=== PATIENT | female | born 1960 | race Hispanic/Latino ===

== ENCOUNTER 2025-06-25 11:21 | Inpatient (IN) | payer OTHER ==
[~2025-06-25] VITALS: Ht 167.6 cm; Wt 108.9 kg
[2025-06-25] MEDS ORDERED: SODIUM CHLORIDE 0.9% 1,000 ML IV ONE (11:45)
[2025-06-25 12:09] LABS: BASOPHILS 0.4 % (0.1-1.2); EOSINOPHILS 0.8 % (0.7-5.8); LYMPHOCYTES 12.4 % (19.3-51.7); MCH 28.5 PG (25.6-32.2); MCHC 32.6 g/dL (32.2-35.5); MCV 87.7 fL (79.4-94.8); MONOCYTES 12.1 % (4.7-12.5); NEUTROPHILS 74.1 % (34.0-71.1); RBC 3.89 M/uL (3.93-5.22)
[2025-06-25 12:25] LABS: ALT (SGPT) 19.0 U/L (14-59); AST (SGOT) 25.0 U/L (15-37); GLOMERULAR FILTRATION RATE,EST 100.0 mL/min (>60); PROTEIN, TOTAL 7.0 g/dL (6.4-8.2); UREA NITROGEN 6.0 mg/dL (7-18)
[2025-06-25] MEDS ORDERED: KETOROLAC TROMETHAMINE 30 MG/ML VIAL IV ONE (13:15)
[2025-06-25 14:15] LABS: BLOOD/HGB, URINE NEGATIVE (Negative); KETONE, URINE NEGATIVE (Negative); LEUK ESTERASE, URINE NEGATIVE (negative); NITRITE, URINE NEGATIVE (negative)
[2025-06-25] MEDS ORDERED: BUPROPION XL150 MG PO (14:29)
[2025-06-25] MEDS ORDERED: ROSUVASTATIN CA20 MG PO (14:29)
[2025-06-25] MEDS ORDERED: PEG3350510 GM PO (14:31)
[2025-06-25] MEDS ORDERED: VITAMIN D21250 MCG PO (14:31)
[2025-06-25] MEDS ORDERED: NACL IV PRN ×2 (15:45)
[2025-06-25] MEDS ORDERED: NALOXONE HCL 0.4 MG SYR IV PRN ×2 (15:45)
[2025-06-25] MEDS ORDERED: MORPHINE SULFATE IV PRN ×2 (15:45)
[2025-06-25] MEDS ORDERED: PCA SYRING IV PRN ×2 (15:45)
[2025-06-25] MEDS ORDERED: PROCHLORPERAZINE EDISYLATE 10 MG/2 ML VIAL IV PRN ×2 (15:45)
[2025-06-25] MEDS ORDERED: PCA SYRING IV SCH ×2 (15:45)
[2025-06-25] MEDS ORDERED: MORPHINE SULFATE IV SCH ×2 (15:45)
[2025-06-25] MEDS ORDERED: NACL IV SCH ×2 (15:45)
[2025-06-25] MEDS ORDERED: DEXTROSE 5% - LACTATED RINGERS 1,000 ML IV SCH ×2 (15:45)
[2025-06-25] MEDS ORDERED: ZOLPIDEM TARTRA10 MG PO (16:08)
[2025-06-25] MEDS ORDERED: SODIUM CHLORIDE3 ML OPTH (16:09)
[2025-06-25] MEDS ORDERED: OLANZAPINE10 MG PO (16:37)
[2025-06-25] MEDS ORDERED: SEVOFLURANE 250 ML BTL INH ONE (16:57)
[2025-06-25] MEDS ORDERED: fentaNYL citrate 100 MCG/2 ML VIAL ONE (18:12)
[2025-06-25] MEDS ORDERED: SUCCINYLCHOLINE IN 0.9% NACL 200 MG/10 ML SYRINGE ONE (18:33)
[2025-06-25] MEDS ORDERED: ROCURONIUM BROMIDE 50 MG/5 ML SYR ONE ×2 (18:33→19:04)
[2025-06-25] MEDS ORDERED: LIDOCAINE HCL 2% 5 ML SDV ONE (18:33)
[2025-06-25] MEDS ORDERED: KETOROLAC TROMETHAMINE 30 MG/ML VIAL ONE (18:33)
[2025-06-25] MEDS ORDERED: DEXAMETHASONE SOD PHOS 4 MG/ML VIAL ONE (18:33)
[2025-06-25] MEDS ORDERED: SUGAMMADEX SODIUM 200 MG/2 ML ML ONE (18:33)
[2025-06-25] MEDS ORDERED: KETAMINE in NS 50 MG/5 ML SYR ONE (18:42)
[2025-06-25] MEDS ORDERED: SODIUM CHLORIDE 0.9% 40 ML IV ONE (20:24)
[2025-06-25] MEDS ORDERED: Ropivacaine HCl 0.5% 30 ML VIAL ONE (20:24)
[2025-06-25] MEDS ORDERED: FAMOTIDINE 20 MG/ 2 ML VIAL IV SCH ×2 (21:00)
--- NOTE | 2025-06-25 21:30 | NUR ---
PT BROUGHT FROM PACU TO CCU ROOM 127. REPORT RECEIVED FROM RACHEL JONES. PT IS AWAKE AND ALERT, SHE IS ON 6L/O2/MASK, THIS IS TITRATED DOWN TO 2L. PT HAS TANMAY ON RIGHT SIDE DRAINING S/S FLUID, SMALL AMOUNT. HOLGUIN IN PLACE DRAINING URINE WITH TINGES OF RED, MD AT BEDSIDE AND AWARE AND STATES THIS IS TO BE EXPECTED. ABD BINDER IN PLACE, DRESSINGS CDI.
[2025-06-25 21:45] VITALS: BP 121/58
[2025-06-25] MEDS ORDERED: LIDOCAINE 2% VISCOUS 6 ML SYR TOP ONE ×2 (21:45)
[2025-06-25 22:00] VITALS: BP 130/79
--- NOTE | 2025-06-25 22:05 | NUR ---
06/25/25 2205 Yi,Angie Srivastava 2128: PATIENT TO CCU ROOM 127 FOR RECOVERY. ORAL AIRWAY IN PLACE. 2133: ORAL AIRWAY OUT. 2140: O2 DECREASED TO 4 L/MIN VIA MASK. 2141: REPORT GIVEN TO CCU RN.
[2025-06-25 22:06] LABS: BASOPHILS 0.5 % (0.1-1.2); EOSINOPHILS 0.3 % (0.7-5.8); LYMPHOCYTES 8.3 % (19.3-51.7); MCH 28.8 PG (25.6-32.2); MCHC 32.8 g/dL (32.2-35.5); MCV 87.7 fL (79.4-94.8); MONOCYTES 5.7 % (4.7-12.5); NEUTROPHILS 84.9 % (34.0-71.1); RBC 3.82 M/uL (3.93-5.22)
[2025-06-25 22:15] VITALS: BP 130/71
--- NOTE | 2025-06-25 22:15 | NUR ---
FAMILY HAS QUESTIONS REGARDING PLAN FOR PT AND ONE SON IS REQUESTING A SECOND OPINION REGARDING CARE OF PT AND IS WANTING PT TRANSFERRED. DISCUSSED PLAN FOR THE NIGHT TO MONITOR PT DURING IMMEDIATE POST OP TIME AND FAMILY IS OKAY WITH WAITING UNTIL MORNING TO DISCUSS THIS WITH THE DOCTOR.
[2025-06-25 22:30] VITALS: BP 128/74
[2025-06-25 22:45] VITALS: BP 135/74
[2025-06-25 23:00] VITALS: BP 145/71
[2025-06-26] VITALS (23 sets, daily range): BP systolic 90–155; BP diastolic 52–95
--- NOTE | 2025-06-26 00:02 | NUR ---
ASSESSMENT DONE, RN JERROD IS PRESENT TO DISCUSS PLAN OF CARE WITH THE PT AND EXPLAIN CHAINSTITCH PANTS OUTSEAMER AND COLOSTOMY. PT DOES REQUEST WATER BUT IS OKAY WITH WAITING, DOES NOT WANT A MOUTH SWAB AT THIS TIME. CALL LIGHT IN HAND, LIGHTS OUT AND PT IS WANTING TO TRY TO SLEEP.
[2025-06-26 02:46] LABS: BASOPHILS 0.3 % (0.1-1.2); EOSINOPHILS 0 % (0.7-5.8); LYMPHOCYTES 5.3 % (19.3-51.7); MCH 28.6 PG (25.6-32.2); MCHC 32.5 g/dL (32.2-35.5); MCV 88.0 fL (79.4-94.8); MONOCYTES 8.2 % (4.7-12.5); NEUTROPHILS 85.8 % (34.0-71.1); RBC 3.99 M/uL (3.93-5.22)
--- NOTE | 2025-06-26 03:00 | NUR ---
PTS HR HAS TRENDED UP, SHE CONTINUES TO DENY PAIN, URINE OUTPUT HAS BEEN 30ML/HR FOR THE LAST 6 HOURS. HR NOW SITTING AT 140 CONSISTENTLY, SINUS TACHYCARDIA. CALL TO MD TO UPDATE HER, ORDER GIVEN FOR EKG, 500ML LR BOLUS AND TO GIVE PT HER HOME MEDS.
[2025-06-26 03:01] LABS: ALT (SGPT) 103.0 U/L (14-59); AST (SGOT) 184.0 U/L (15-37); GLOMERULAR FILTRATION RATE,EST 102.0 mL/min (>60); PROTEIN, TOTAL 6.5 g/dL (6.4-8.2); UREA NITROGEN 8.0 mg/dL (7-18)
--- NOTE | 2025-06-26 03:43 | NUR ---
RT IN TO DO EKG
[2025-06-26] MEDS ORDERED: LACTATED RINGER'S 1,000 ML IV SCH ×2 (03:45)
--- NOTE | 2025-06-26 04:15 | NUR ---
ASSESSMENT DONE, TANMAY DRAINING SEROSANG FLUID. COLOSTOMY HAS BROWN STOOL COMING FORM STOMA. ABD BINDER IN PLACE, SMALL AMT RED DRAINAGE ON SURGICAL DRESSING. URINE OUTPUT IS LOWER THIS LAST HOUR, WILL CONT TO MONITOR. PT CONTINUES TO DENY PAIN WHEN ASKED.
--- NOTE | 2025-06-26 04:21 | NUR ---
BOLUS HAS COMPLETED, HR STILL 140 SINUS TACHYCARDIA.
[2025-06-26] MEDS ORDERED: OLANZapine 10 MG TAB PO SCH ×2 (04:30)
[2025-06-26] MEDS ORDERED: buPROPion HCL XL 150 MG TAB.XL.24H PO SCH ×2 (04:30)
[2025-06-26] MEDS ORDERED: LORazepam 2 MG/ML VIAL IV PRN ×2 (04:45)
--- NOTE | 2025-06-26 04:45 | NUR ---
MD CALLED BACK TO CHECK ON EKG AND ORDER GIVEN FOR PRN ATIVAN. 2MG IV ATIVAN GIVEN, PT RESPONSE TO ATIVAN WAS TO FALL ASLEEP, DID NOT AROUSE TO LIGHT CARE ACTIVITIES. HR REMAINED 140'S. DURING THIS TIME SHE FELT WARM AND TEMP WAS RECHECKED AND SHE DID HAVE A TEMP.
--- NOTE | 2025-06-26 05:32 | NUR ---
CALL TO MD TO UPDATE ON RECENT FEVER AND DROP IN URINE OUTPUT. ORDER GIVEN TO ADD ABX TO EMAR AND TYLENOL PRN TEMP 101.5F.
[2025-06-26] MEDS ORDERED: ACETAMINOPHEN 325 MG TAB PO PRN ×2 (05:45)
--- NOTE | 2025-06-26 06:30 | NUR ---
HOME MEDS GIVEN WITH TYLENOL FOR FEVER, PT TOOK WELL, NGT TAKEN OFF SUCTION FOR NOW.
--- NOTE | 2025-06-26 08:00 | NUR ---
REPORT RECEIVED FROM ROBERT RAHMAN. PT AWAKE AND DTR JOYA IN ROOM. WANTED TO KNOW WHY SHE COULD NOT DRINK ANYTHING. EXPLAINED THE NG TUBE AND OFFERED MOUTH SWABS. WASHED PT FACE WITH WARM CLOTH. RATES PAIN 0/10, CANE LOADER AT 2MG\HR.
[2025-06-26] MEDS ORDERED: OLANZapine 2.5 MG TAB PO SCH ×2 (09:00)
--- NOTE | 2025-06-26 09:51 | NUR ---
DR Bojorquez AND DR OMRRIS IN ROOM. ALEXANDRA CONSULTED. ORDERED SERUM CREATNINE ON TANMAY DRAINAGE, 500ML LR BOLUS, PT CAN HAVE ICE FOR COMFORT ANS ZOSYN. FLOAT RN ZAYDA PUTTING IN SECOND IV. DR Bojorquez ASSESSED OSTOMY AND STATES IT APPEARS PATENT. MAY HAVE AB BINDER OFF WHILE IN BED. PT SPOKE WITH DR Bojorquez A LITTLE.
[2025-06-26] MEDS ORDERED: PIPERACILLIN/TAZOBACTAM 4.5 GM in SODIUM CHLORIDE 0.9% 100 ML IV SCH ×2 (10:00)
[2025-06-26] MEDS ORDERED: LACTATED RINGER'S 500 ML IV SCH ×4 (10:00→13:00)
--- NOTE | 2025-06-26 11:29 | NUR ---
IN ROOM ANSWERING QUESTIONS FROM FAMILY, SON ILSA AND DTR IN LAW. PT SLEEPING. VS STABLE. BOLUS COMPLETE. AB INFUSING.
--- NOTE | 2025-06-26 14:05 | NUR ---
ROTATED PT IN BED AND REMOVED EXTRA DRAW SHEET AND ABD BINDER DR Bojorquez STATED THAT SHE ONLY HAS TO HAVE IT ON WHEN OUT OF BED. PT OPENED EYES AND GROANED BUT SHOOK HEAD WHEN ASKED ABOUT PAIN. BOLUS COMPLETE.
--- NOTE | 2025-06-26 14:13 | NUR ---
PT GIVEN AN ICE CHIP AND EXPLAINED THAT SHE COULD HAVE A SMALL AMT.
--- NOTE | 2025-06-26 16:15 | NUR ---
PT REPOSITIONED TO BACK, HOB ELEVATED. PT PROVIDED ICE CHIPS. FAMILY AT BEDSIDE. PT DENIES PAIN.
--- NOTE | 2025-06-26 16:55 | NUR ---
PT MORE AWAKE AND DENIES PAIN. HR REMAINS HIGH IN 130'S. SPOKE WITH DR MORRIS, ORDERED A BMP. FAMILY IN ROOM.
--- NOTE | 2025-06-26 17:14 | NUR ---
medications reconciled using tanyard worker and visual inspection of RX bottles. Attempted to call [facility] to verify the olanzapine RX, but they were closed. Patient has been taking zolpidem 10mg at hs for at least 1 year. She does not have that RX bottle but she does have an RX bottle for olanzapine 10mg at filled 06/08/25. Hence, I listed the olanzapine as a current medication, rather then zolpidem until I hear otherwise.
[2025-06-26 17:16] LABS: GLOMERULAR FILTRATION RATE,EST 52.0 mL/min (>60); UREA NITROGEN 16.0 mg/dL (7-18)
[2025-06-26] MEDS ORDERED: SODIUM CHLORIDE 0.9% 500 ML IV SCH (17:30)
--- NOTE | 2025-06-26 17:46 | NUR ---
PATIENT IS LAYING IN BED. PATIENTS CALL LIGHT IS WITHIN REACH AND NO FURHTER NEEDS AT THIS TIME.
--- NOTE | 2025-06-26 18:40 | NUR ---
PT RESTING IN BED, MANY MANY FAMILY IN ROOM. DENIES PAIN. BOLUS COMPLETE.
--- NOTE | 2025-06-26 19:30 | NUR ---
RECIEVED REPORT, FAMILY PRESENT IN THE ROOM AT THIS TIME. CALL LIGHT WITHIN REACH, INFORMED WILL BE BACK SHORTLY TO ASSESS PATIENT AND PROVIDE MEDS. PT DENIED ANY NEEDS AT THIS TIME
--- NOTE | 2025-06-26 21:15 | NUR ---
THIS RN AND NELIDA RN, IN ROOM TO CHANGE LEAKING OSTOMY. PT PROVIDED BED BATH WITH WARM WIPES, GOWN CHANGED. OSTOMY HAS RED/BROWN FLUID OUTPUT DRAINING, NO STOOL AT THIS TIME. PASTE USED ON THE LEFT SIDE OF OSTOMY THERE IS A CREASE WHICH WAS HARD TO SEAL/PREVENT LEAKING, WILL MONITOR CLOSELY. SCDS PLACED BACK ON PATIENT. IV FLUID BAG COMPLETE, CHANGED AND NEW BAG HANGING - SEE MAR. PT DENIES NAUSEA, WANTS TO REST. WARM BLANKET PROVIDED, FRESH ICE CHIPS PROVIDED. LIGHT LIGHT WITHIN REACH. ASSEMENT COMPLETED. DAUGHTER PROVIDED BLANKETS/PILLOWS AND SLEEPING IN THE ROOM. PT USES FAMILY TO TRANSLATE THIS EVENING DURING ASSESSMENT AND CARES.
--- NOTE | 2025-06-26 22:30 | NUR ---
SURGEON PRESENT ON THE FLOOR, ROUNDED ON PATIENT. THIS RN PRESENT IN ROOM. TANMAY DRAIN STRIPPED BY MD, OSTOMY ASSESSED BY MD. INFORMED MD OF INCREASED UOP THESE LAST 2 HOURS, WILL CONTINUE TO MONITOR HOURLY FOR OUTPUT, REINFORCED PT STILL TACHY PROVIDED AWARE. NO NEW ORDERS AT THIS TIME.
[2025-06-27] VITALS (14 sets, daily range): BP systolic 12–135; BP diastolic 51–77
--- NOTE | 2025-06-27 00:52 | NUR ---
PT RESTING AT THIS TIME, DID NOT WAKEN WHEN ENTERED ROOM. DAUGHTER RESTING ON THE COUGH. IV FLUIDS INFUSING, TOP CAGER 2.49ML CLEARED/DOCUMENTED. CALL LIGHT WITHIN REACH, THIS RN ALLOWS PT TO SLEEP.
--- NOTE | 2025-06-27 02:31 | NUR ---
PT PILLOWS ADJUSTED AND PATIENT REPOSITIONED SLIGHTLY. DENIES ANY PAIN AT THIS TIME, PT HAS NOT PUSHED PRESS ROOM SUPERVISOR SINCE BEDTIME. IV ABX/FLUIDS INFUSING ORDERED. PT UOP HAS BEEN >20ML/HR OVER THIS SHIFT, TANMAY CONTINUES TO DRAIN SEROSANG OUTPUT. VS STABLE. PT REQUESTING ICE CHIPS, 100ML PROVIDED AT THIS TIME. LIGHT TURNED ON ABOVE BED PER PATIENT REQUEST. DAUGHTER RESTING ON COUCH AT THIS TIME. CALL LIGHT WITHIN REACH, PT DENIES ANY OTHER NEEDS AT THIS TIME.
[2025-06-27 05:30] LABS: BASOPHILS 0.3 % (0.1-1.2); EOSINOPHILS 1.8 % (0.7-5.8); LYMPHOCYTES 11.6 % (19.3-51.7); MCH 28.6 PG (25.6-32.2); MCHC 31.7 g/dL (32.2-35.5); MCV 90.0 fL (79.4-94.8); MONOCYTES 10.6 % (4.7-12.5); NEUTROPHILS 75.0 % (34.0-71.1); RBC 3.01 M/uL (3.93-5.22)
--- NOTE | 2025-06-27 05:46 | NUR ---
THIS RN IN TO REPOSITION PATIENT IN BED WITH ASSISTANCE FROM ROBERT MUSA. PT ONLY WANTED TO TURNED SLIGHTLY, PILLOW PLACED UNDER RIGHT BUTTOCK. C/O 11/10 PAIN WITH MOVEMENT BUT WITH REST 0/10 PAIN. MORPHINE SURVEY RESEARCH CENTER DIRECTOR AVAILABLE IF NEEDED, REMINDED PT TO USE IF IN PAIN. PT HAD QUESTIONS REGARDING FOOD, REQUESTING THIS RN WAKE DAUGHTER WHO WAS PRESENT IN ROOM. PER PATIENT, SHE WAS INQUIRING WHEN BREAKFAST WOULD BE COMING, EDUCATED THAT SHE HAS AN NG TUBE IN PLACE IN HER STOMACH, SHE IS NPO STATUS UNTIL CLEARED BY SURGEON WHICH COULD TAKE SOMETIME DUE TO THE COMPLEXITY OF HER SURGERY. PT VERBALIZED UNDERSTANDING, REQUESTING MORE ICE CHIP WHICH 60ML WAS GIVEN. DENIES NAUSEA. TANMAY WITH VERY LITTLE OUTPUT SINCE LAST DRAINED, PT HAD 120ML DARK YELLOW URINE, APPEARS TO HAVE SEDIMENT AND SOME SCANT BLOOD, WILL MONITOR. NG TO (R) NARE REMAINS IN PLACE, SECURED. MIDLINE INCISION UNCHANGED, DRY BLOOD NOTHING NEW. COLOSTOMY HAS NO OUTPUT STILL, HAS BEEN SECURED, NO LEAKAGE SINCE CHANGE AROUND 2144. NO EDEMA TO BLE, SCDS IN PLACE STILL. CALL LIGHT WITHIN REACH, DENIES ANY OTHER NEEDS AT THIS TIME.
[2025-06-27 05:47] LABS: ALT (SGPT) 48.0 U/L (14-59); AST (SGOT) 59.0 U/L (15-37); GLOMERULAR FILTRATION RATE,EST 83.0 mL/min (>60); PROTEIN, TOTAL 5.4 g/dL (6.4-8.2); UREA NITROGEN 16.0 mg/dL (7-18)
--- NOTE | 2025-06-27 06:35 | NUR ---
DR MORRIS NOTIFIED OF URINE, WITH SEDIMENT/HEMATURIA. ORDER FOR UA INPUT, HOLGUIN CLAMPED NOW, WILL SEND OUT LAB THIS MORNING.
--- NOTE | 2025-06-27 07:23 | EKG ---
[facility] [address] [place], [place] [address] Signed Sinus tachycardia Nonspecific T wave abnormality Abnormal ECG No previous ECGs available Confirmed by ROBBIE MORRIS MD ([id number]) on 06/27/2025 7:23:27 AM Electronically Signed By: ROBBIE MORRIS 06/27/25722 PATIENT NAME: CHICO TRINHTED CABRERA Electrocardiogram DATE OF : 62 PHYSICIAN: ROBBIE MORRIS REPORT #: [id number] REPORT IS CONFIDENTIAL AND NOT TO BE RELEASED WITHOUT AUTHORIZATION
--- NOTE | 2025-06-27 07:41 | NUR ---
REPORT RECEIVED FROM ROBERT HERNÁNDEZ. PT CALLED OUT SHE THOUGHT HER PCP BUTTON WAS HER CALL LIGHT. REEDUCATED HER ON WHICH WAS WHICH AND GAVE HER ICE PER REQUEST. ASKED HER IF SHE WANTED TO GET UP TO CHAIR, SHE DECLINED AT THIS TIME.
--- NOTE | 2025-06-27 09:30 | NUR ---
ASSISTED PT TO STAND AND PIVOT INTO CHAIR. ABD BINDER SECURED PRIOR TO STANDING. ONCE IN CHAIR WASHED HER HAIR AND PUT UP IN PONYTAIL. DTR IN ROOM. PT RATES PAIN 2\10. CHANGED BEDDING AND CLEANED ROOM.
[2025-06-27 09:41] LABS: BLOOD/HGB, URINE LARGE (Negative); KETONE, URINE NEGATIVE (Negative); LEUK ESTERASE, URINE NEGATIVE (negative); NITRITE, URINE NEGATIVE (negative)
[2025-06-27 09:46] LABS: EPITHELIAL CELLS, URINE SQUAMOUS 2+ /lpf (0-1+)
[2025-06-27 09:47] LABS: BACTERIA, URINE NONE SEEN /hpf (negative); CASTS, URINE NONE SEEN \\lpf; CRYSTALS, URINE NONE SEEN (0-1+); REFLEX CULTURE, URINE No (No)
[2025-06-27] MEDS ORDERED: OLANZapine 2.5 MG TAB PO ONE (10:00)
--- NOTE | 2025-06-27 10:58 | NUR ---
PT REMAINS UP IN CHAIR. MULTIPLE VISITORS. WENT IN ROOM TO PUT O2 BACK ON IT WAS BEEPING. IT WAS BEEPING BECAUSE SHE WAS EATING A PEACH HER FRIENDS HAD BROUGHT HER. TOOK IT AWAY AND EXPLAINED AGAIN NO FOOD AND NO WATER UNTIL CLEARED BY DR. HAD ONLY TAKEN TWO BITES IT APPEARED. CALL LIGHT IN LAP.
--- NOTE | 2025-06-27 12:30 | NUR ---
ASSISTED INVESTIGATOR FRAUD SRINI TO REPETATIVELY STAND PT AND THEN WALK A FEW STEPS TO BED. THEN HAD PT ASSIST WITH SCOOTING HER UP IN BED. USED INTERPRATIVE IPAD TO COMMUNICATE WITH PT. SHE TOLERATED OK, HR WENT UP TO 140'S. PAIN WAS CONTROLLED AFTER AN INITIAL EXTRA PUSH OF HER TECHNICAL MARKETING ENGINEER BUTTON. CALL LIGHT IN REACH. REFILLED ICE GROUP HOME. ATTACHED BACK TO NG SUCTION.
[2025-06-27] MEDS ORDERED: MORPHINE SULFATE 4 MG/ML VIAL IV PRN (14:30)
--- NOTE | 2025-06-27 14:52 | NUR ---
REMOVED HOUSE RN. REPLACED HOLGUIN SECUREMENT DEVICE. CHANGED NC TO A NON ETCO2. AB COMPLETE, DISCONNECTED FROM ALL UNUSED LINES ATT. FDYRCD66.5 ML OF MORPHINE REMAINING IN HOUSE RN, SQUIRTED INTO LIQUID SHARPS BOX. PT REMAINS ASLEEP. CALL LIGHT ON LAP.
--- NOTE | 2025-06-27 18:05 | NUR ---
EMPTIED DRAIN AND MEASURED NG AND HOLGUIN. PT IN BED WATCHING TV. DENIES PAIN ATT. USED EMERGENCY NURSE IPAD TO CONVERSE WITH PT. MIDLINE UNCHANGED. OSTOMEY APPEARS DARK AND SMALL AMT DARK BLOOD HAS DRAINED, UNCHANGED FROM YESTERDAY. NO GAS NOTED IN BAG.
--- NOTE | 2025-06-27 18:47 | NUR ---
PT BOOSTED UP IN BED WITH ROBERT LAWLER ASSISTANCE. PT ABLE TO PUSH WITH HEELS. WAS PAINFUL 9\10 WITH MOVEMENT. GIVEN PRN PAIN MED. VS STABLE, HR REMAINS ELEVATED IN 120'S. FRIENDS LEFT AND PT IS NOW RESTING WITH EYES CLOSED. CALL LIGHT ON LAP.
[2025-06-28] VITALS (12 sets, daily range): BP systolic 120–137; BP diastolic 65–81
--- NOTE | 2025-06-28 00:31 | NUR ---
UPDATE: Pt found sitting at bedside attempting to go to the bathroom. Pt was assisted back in bed and educated, colostomy/valladares. Bed alarm active. Pt reporting 10/10 pain, treated with Morphine, per eMAR orders. Pt's temp 99.9, room temperature adjusted, pt lightly covered, cold packs given.
--- NOTE | 2025-06-28 04:27 | NUR ---
UPDATE: Throughout the shift, pt has become more noncompliant with cares, frequently removing medical equipment (Spo2 probe/tele/nasal cannula) stating that "it's not working." This RN has educated & reoriented pt. However, pt is forgetful and impulsive. Bed alarm is on.
[2025-06-28 05:55] LABS: BASOPHILS 0.4 % (0.1-1.2); EOSINOPHILS 3.2 % (0.7-5.8); LYMPHOCYTES 11.6 % (19.3-51.7); MCH 28.2 PG (25.6-32.2); MCHC 31.3 g/dL (32.2-35.5); MCV 90.1 fL (79.4-94.8); MONOCYTES 9.5 % (4.7-12.5); NEUTROPHILS 74.5 % (34.0-71.1); RBC 2.94 M/uL (3.93-5.22)
[2025-06-28 06:12] LABS: ALT (SGPT) 36.0 U/L (14-59); AST (SGOT) 65.0 U/L (15-37); GLOMERULAR FILTRATION RATE,EST 104.0 mL/min (>60); PROTEIN, TOTAL 5.3 g/dL (6.4-8.2); UREA NITROGEN 7.0 mg/dL (7-18)
--- NOTE | 2025-06-28 06:45 | NUR ---
SHIFT SUMMARY Pt had a fair night, able to rest most of the night. Intermittently refusing care, impulsive, removing lines/cords. Attempted to get out of bed on her own once, bed alarm active. TMax 99.[address] Lester aware. Notify surgeon. Colostomy black, foul ammonia-like odor. Dr. Lester aware. Pt is scheduled to go for Stoma Scope today. Due to body habitus, difficult to obtain adequate seal of colostomy bag. RUQ TANMAY drain: 35ml output, serosanguinous NGT: 40ml output, green/brown Jenkins in place, 948ml output, clear/straw yellow
[2025-06-28] MEDS ORDERED: ACETAMINOPHEN 1,000 MG/100 ML VIAL IV PRN (07:00)
--- NOTE | 2025-06-28 07:41 | NUR ---
REPORT RECEIVED FROM ROBERT DOVE. CHECKED ON PT, ADJUSTED BLINDS SUN WAS IN HER EYES. SHE OPENED EYES AND STATED THAT SHE IS "OK" WHEN ASKED. AB AND IVF INFUSING.
--- NOTE | 2025-06-28 08:30 | NUR ---
EMPTIED FOLEYFOR 230 CLEAR\LIGHT URINE. WITH ASSISTANCE FROM KAIT GERMAIN CHANGED OUT OSTOMY APPLIANCE IT WAS ONCE AGAIN LEAKING FROM THE CREASE OF ADIPOSE TISSUE ROLL. CHANGED WITH A ONE PIECE SOFTER APPLIANCE THIS TIME AND APPEARS TO HAVE A GOOD FIT INTO THE CREVICE. PT TOLERATED WELL AND DENIES PAIN ATT. ALSO WIPED DOWN ALL EXPOSED SKIN WITH BED BATH WIPES AND PLACED PILLOW CASE IN PANUS FOLD. TANMAY HAS SCANT SEROSANG DRAINAGE, STRIPPED LINE. PT AGAIN REFUSED SCD'S.
[2025-06-28] MEDS ORDERED: FLUCONAZOLE/SOD CHLORIDE 100 ML IV SCH (09:00)
[2025-06-28] MEDS ORDERED: OLANZapine 10 MG TAB PO SCH (09:00)
--- NOTE | 2025-06-28 09:18 | NUR ---
SPOKE WITH PT VIA CREDIT RISK ANALYTICS MANAGER, EXPLAINED HER MEDS AND REITERATED THE PLAN FOR TOMORROWS SCOPE. ANSWERED QUESTIONS. ADMINISTERED MEDS.
--- NOTE | 2025-06-28 09:57 | NUR ---
PT TALKING IN SLEEP AND RANDOMLY ASKING IF THINGS ARE WORKING. DOES NOT APPEAR TO BE COMPLETELY ORIENTED BUT THEN WHEN ASKED QUESTIONS SUCH WHERE ARE YOU OR DO YOU HAVE ANY PAIN SHE ANSWERS APPROP.
--- NOTE | 2025-06-28 10:37 | NUR ---
PT FAMILY INCLUDING DTR JOYA IN ROOM. ASKED THEM HOW ORIENTED THEY FELT SHE WAS AND THEY STATED SHE IS REPEATING HERSELF BUT NOT BAD, JUST A LITTLE OFF. DENIES PAIN.
--- NOTE | 2025-06-28 10:51 | NUR ---
ALERT IN BED, FAMILY MEMBERS IN ROOM. DAUGHTER ANSWERS QUESTIONS. PATIENT LIVES AT [facility] IN [place], [place]. PATIENT USES NO DME. SHE NO LONGER DRIVES. DAUGHTER THINKS PATIENT SHOULD HAVE A WALKER. INFORMED DAUGHTER OF POTENTIAL NEED FOR SNF AFTER THIS SURGERY PENDING PT/OT EVAL AND RECOMMENDATION. VERBALIZES UNDERSTANDING. [facility] WOULD BE AN OPTION. DC PLAN PENDING FURTHER EVAL AND TREATMENT.
--- NOTE | 2025-06-28 11:22 | NUR ---
UR CLINICAL REVIEW: [facility] REVIEW MEETS GEN SURGERY GRG WITH NEED FOR EXPLOATORY LAP FOR SIGMOID MASS [facility]O INPT 06/25/25 @ 1549 ORDER MATCHES REG CLINICALS FAXED TO [facility] FOR AUTH REVIEW AWAITING PROCEDURE ON 06/29/25 06/29/25 DC REVIEW
--- NOTE | 2025-06-28 11:46 | NUR ---
CALLED DR LOPEZ REGARDING MG\K+ REPLACEMENT, HE SAID TO HAVE PHARMACY DOSE PER PROTOCOL. CALLED PHARM. HERNANDEZ STATED HE WOULD TAKE CARE OF IT.
--- NOTE | 2025-06-28 12:28 | NUR ---
PT ASKING QUESTIONS SO IPAD RESPITE PROVIDER USED. PT SAID SHE HAD STUFF COOKING AND WAS THINKING IT WOULD BURN. EXPLAINED SHE HAD BEEN HERE IN THE HOSPITAL 4 DAYS AND IT HAD PROBABLY BEEN TAKEN CARE OF. WILL TALK TO DTR WHEN SHE COMES BACK. EXPLAINED I WOULD BE DOING A BED BATH FOR HER AND ASKED IF SHE HAD ANY DISCOMFORT. SHE STATED NO OTHER THAN HER NOSE FROM THE NG TUBE. BED BATH PERFORMED AND GOWN CHANGED. CALL LIGHT IN REACH.
[2025-06-28] MEDS ORDERED: MAGNESIUM SULFATE 2 GM/50 ML BAG IV ONE (12:30)
[2025-06-28] MEDS ORDERED: POTASSIUM CHLORIDE 40 MEQ,LIDOCAINE HCL 1% 40 MG in DEXTROSE 5% 250 ML IV ONE (12:30)
--- NOTE | 2025-06-28 13:47 | NUR ---
EMPTIED TANMAY FOR 25 AND URINE FOR 350ML. SCANT AMT IN OSTOMY BAG, NOT EMPTIED. REMAINS WELL ADHERED ATT. VISITORS IN ROOM.
--- NOTE | 2025-06-28 14:43 | NUR ---
ASSISTED QUARRYING MANAGER WITH HELP OF IPAD HUMAN RESOURCES SPECIALIST TO AMB PT TO CHAIR FROM BED. PT DID MUCH BETTER TODAY AND WAS ABLE TO FOLLOW DIRECTIONS, HR REMAINED IN LOW 100'S. ABD BINDER ON WHILE UP. SETTLED IN CHAIR WITH PILLOWS, BANKETS, CALL LIGHT AND A DOSE OF PAIN MED FOR 9/10 ABD PAIN WHILE UP. PT NOW RESTING COMFORTABLEY. FRIENDS WERE HERE BRIEFLY AND HAVE LEFT. CHANGED LINENS AND TIDIED ROOM.
--- NOTE | 2025-06-28 16:27 | NUR ---
[facility] REFERRAL FAXED TO [facility].
--- NOTE | 2025-06-28 16:39 | NUR ---
IN TO SPEAK WITH SON, BRANDYN. INFORMED HIM OF RECOMMENDATION FOR SNF. HE IS IN AGREEANCE WITH SNF AND [facility] IN [place] WHEN MEDICALLY READY. QUESTIONS ANSWERED, VOICES CONCERNS ABOUT PSYCH MEDS AND HISTORY OF SCHIZOPHRENIA. SPOKE WITH Genet MERRITT RN. PATIENT IS STILL GETTING HER PSYCH MEDS.
[2025-06-28] MEDS ORDERED: PIPERACILLIN/TAZOBACTAM 4.5 GM in DEXTROSE 5% 100 ML IV SCH ×2 (18:00)
--- NOTE | 2025-06-28 18:56 | NUR ---
ASSISTED DR LOPEZ WITH DRESSING REMOVAL AND REPLACEMENT. INCISION WELL APPROX AND DRAINING A SMALL AMT FROM BOTTOM OF INCISION. OSTOMY HAD 100ML DARK\CECILLE APPEARING THIN LIQ BLOOD. TANMAY 10ML SEROSANG. SON IN ROOM. DR AND PT SIGNING CONSENT FOR TOMORROW.
--- NOTE | 2025-06-28 20:36 | NUR ---
"ASSUMPTION OF CARE: Upon initial assessment, pt is resting comfortably in bed with eyes closed, easily arousable, responding to questions appropriately, occassionally says things that are inappropriate to situation. She denies pain at this time. VS: HR 109 | RR 27 | BP 138/75 | SpO2 92% on RA Jenkins: draining clear yellow urine, quanitity sufficient NG: draining green small amount of green fluid RUQ TANMAY: draing small smount of serosanguinous fluid Midline ABD inc: new dsg present; clean, dry, intact at this time At this time, pt states her needs are met. Family visiting at the bedside."
[2025-06-28 22:13] LABS: CANCER ANTIGEN 125 153 U/mL (<=38)
--- NOTE | 2025-06-28 22:40 | NUR ---
Pt is resting comfortably in bed with eyes closed, easy to arouse, refusing repositioning. Denies pain at this time. VSS. Daughter asleep at bedside.
[2025-06-29] VITALS (19 sets, daily range): BP systolic 105–145; BP diastolic 47–641
--- NOTE | 2025-06-29 03:39 | NUR ---
Pt's ostomy draining clear, tea-colored liquid, faint urine-like odor present.
[2025-06-29 05:40] LABS: ALT (SGPT) 36.0 U/L (14-59); AST (SGOT) 56.0 U/L (15-37); GLOMERULAR FILTRATION RATE,EST 104.0 mL/min (>60); PROTEIN, TOTAL 5.3 g/dL (6.4-8.2); UREA NITROGEN 4.0 mg/dL (7-18)
--- NOTE | 2025-06-29 06:49 | NUR ---
Pt ostomy output collected and sent to lab per Dr. Lester. Orders pending.
--- NOTE | 2025-06-29 07:45 | NUR ---
THIS RN RECEIVED REPORT FROM NIGHT RN. PATIENT RESTING IN BED, DAUGHTER PRESENT AT BEDSIDE - SHE IS GOING TO LEAVE A GO DOWNSTAIRS FOR COFFEE/BREAKFAST. DAUGHTER STATES PT JUST C/O SORE THROAT, MOST LIKELY ASSOCIATED TO NG TUBE - WILL DISCUSS WITH CHLOROSEPTIC SPRAY WHEN ROUNDS. IV FLUIDS INFUSING ORDERED. PT RESTING WITH EYES CLOSED, DID NOT OPEN THEM DESPITE ME TRYING TO TALK WITH HER/DAUGHTER. BED ALARM IN PLACE. THIS RN ALLOWED PATIENT TO REST WHILE DAUGHTER LEFT, CALL LIGHT WITHIN REACH.
--- NOTE | 2025-06-29 08:40 | NUR ---
PT RESTING IN BED, MD ROUNDED THIS MORNING, DAUGHTER/SON PRESENT IN THE ROOM. PLAN TO TAKE PATIENT TO SURGERY FOR COLONSCOPY SCOPE THIS AFTERNOON ADD ON. UNSURE EXACT TIME AND FAMILY INFORMED.
[2025-06-29] MEDS ORDERED: phenoL 177 ML SPRAY MT PRN (09:00)
--- NOTE | 2025-06-29 09:45 | NUR ---
PT RESTING IN BED, ZAYDA PRESENT AND HELPED ME BOOST PATIENT. PT C/O SORE THROAT, PER DR. MORRIS ORDERED CHLOROSEPTIC SPRAY AND PT INFORMED. NG TO (R) NARE TO LIS, CLAMPED AT THIS TIME, ALLOWING MEDS FOR ABSORPTION X1 HOUR. MIDLINE DRESSING VIEWED, NO DRAINAGE ON NEW BANDAGE, THERE IS SOME SCANT DRAINAGE (YELLOW) ON THE DISTAL END OF THE INICISION/GAUZE IN PLACE AND MD VISUALIZED DRAINAGE, NOT CONCERNED AT THIS TIME, NO PLAN FOR WOUND VAC UNLESS OUTPUT CHANGES. UOP IN HOLGUIN QUANT SUFF, YELLOW. TANMAY WITH LITTLE OUTPUT THIS MORNING, NOTHING TO DRAIN. PT FAMILY PRESENT AT BEDSIDE, IV ABX INFUSING. CALL LIGHT WITHIN REACH. WILL CONTINUE TO MONITOR.
--- NOTE | 2025-06-29 11:20 | NUR ---
PT NOT AVAILABLE FOR VISIT. PROVIDED PRAYER.
--- NOTE | 2025-06-29 11:32 | NUR ---
PLANNING TO HAVE PROCEDURE DONE TODAY. REFERRAL WAS FAXED TO [facility] IN [place] YESTERDAY. NO OTHER CM NEEDS AT THIS TIME.
--- NOTE | 2025-06-29 12:01 | NUR ---
NOTIFIED THAT PER [facility] - [facility]; PATIENT NORMALLY GETS ABILITY 300MG IM INJECTION MONTHLY, SHE IS DUE TODAY. REQUESTS WE GIVEN, PER PHARMACY WE DO NOT CARRY THE MEDICATION. I HAVE ATTEMPTED TO CALL BRET BACK AND LET HER KNOW WE DO NOT CARRY/HAVE THE MEDICATION TO PROVIDE. UPDATED.
--- NOTE | 2025-06-29 13:00 | NUR ---
PATIENT LEFT THE FLOOR, THIS RN ASSISTED PATIENT TO STRETCHER WITH LOCOMOTIVE ENGINEER DIESEL NITHYA. SLIDER BOARD WAS UTILIZED. NG TUBE CLAMPED. IV ABX SENT WITH PATIENT. PT DAUGHTER IN THE ROOM AND WENT DOWN TO SURGERY WITH PATIENT/RN.
--- NOTE | 2025-06-29 13:28 | NUR ---
PATIENT LEAVING THE FLOOR AT THIS TIME WITH ROBERT ALLISON AND PATIENT VISITOR.
[2025-06-29] MEDS ORDERED: LIDOCAINE HCL 2% 5 ML SDV ONE (13:45)
--- NOTE | 2025-06-29 14:14 | NUR ---
PT ARRIVED BACK FROM SURGERY, PT ASSISTED BACK TO BED WITH SLIDE/ROLLER. DAUGHTER PRESENT IN THE ROOM. NG TUBE HAS BEEN REMOVED IN OR. NEW OSTOMY APPLIED TO SITE WHEN PATIENT BACK IN ROOM BY THIS RN. SKIN AROUND OSTOMY IS IN GOOD CONDITION NO SIGN OF BREAKDOWN/USED SKIN PREP PRIOR TO APPLYING DEVICE. SCDS BACK ON PATIENT. URINARY DRAIN BAG WAS LEAKING, REPLACED WITH NEW DRAIN BAG. PT COMES BACK WITH 350ML CLEAR YELLOW URINE WHICH WAS EMPTIED. IV FLUIDS RESTARTED AT THIS TIME, PT PULLING OFF OXIMASK, REMOVED AND TOLERATING SATS AT 97% ON RA. TANMAY STILL IN PLACE TO RIGHT ABDOMEN, NO CHANGE. MIDLINE DRESSING IN PLACE, MD DECIDED STILL NO NEED FOR WOUND VAC. VS STABLE. HR REGULAR, LS CLEAR/DIMINISHED TO BILATERAL LOBES. ALL PT CARE NEEDS MET AT THIS TIME, CALL LIGHT WITHIN REACH. PT ALLOWED TO REST AT THIS TIME.
--- NOTE | 2025-06-29 16:25 | NUR ---
PATIENT HAS BEEN RESTING IN BED, SON PRESENT AT BEDSIDE ON THE COUCH. PT HAS BEEN DESATING 87-88% ON RA, APPLIED 1L PER NC AT THIS TIME, SATS 95% NOW. PT ALLOWED TO REST AT THIS TIME. VS STABLE OTHERWISE.
--- NOTE | 2025-06-29 19:20 | NUR ---
RETURN CALL FROM BRET AT [facility], THEY HAVE PATIENT SUPPLY FOR THE ABILITY IN THE CLINIC, THIS WAS DUE TO BE GIVEN TODAY. BRET WILL WORK WITH THEIR TEAM TO REACH OUT TO THE FAMILY TO SEE IF SOMEONE CAN COORDINATE PICKING UP MEDICATION TOMORROW AND BRING TO THE HOSPITAL SO WE CAN ADMINISTER HER MONTHLY DOSE WHILE SHE IS HERE. THIS INFORMATION WAS PASSED ON TO NIGHT TEAM. DOSE: ABILIFY 300MG IM ONCE MONTHLY YOU CAN FOLLOW-UP TOMORROW WITH BRET AT [facility] TO SEE IF THIS HAS BEEN ARRANGED. CONTACT INFO: [phone].
--- NOTE | 2025-06-29 19:35 | NUR ---
HANDOFF REPORT RECEIVED FROM ROBERT HERNÁNDEZ. ALL QUESTIONS ANSWERED. PATIENT RESTING IN BED W/ EYES CLOSED. RESPIRATIONS EVEN AND UNLABORED. PATIENTS SON REMAINS AT BEDSIDE. VITAL SIGNS STABLE. CALL LIGHT IN REACH
--- NOTE | 2025-06-29 20:00 | NUR ---
patient assessment complete. kuwaiti intrepreter used; intrepreter ID#[id number]. patient alert, and confused. patient disoriented to place. patient reoriented. patient resting calmly in bed and does not appear anxious at this time. Respirations even and unlabored. Patient on 1L NC; O2 95%. Lung sounds clear in RUL and MINDA. lung sounds diminished in LLL and RLL. HR 90's-100's, NSR. BP stable. patient L. AC IV site WNL. R. side TANMAY intact, draining serosanguineous fluid. gauze in place around TANMAY site. patient midline incision dressing intact. small amount of yellow drainage on distal part of dressing. bowel sounds hypoactive in all quandrants. Ostomy intact and draining clear, tea colored fluid. Valladares intact and draining clear yellow urine. valladares care complete. patient denies nausea at this time. patient repositioned in bed. no further needs at this time. call light in reach.
--- NOTE | 2025-06-29 21:15 | NUR ---
Patient c/o abdominal pain. PRN pain medication administered per EMAR. IVF and abx running per emar. vital signs stable at this time. patient has no further needs at this time. call light in reach, bed alarm on.
--- NOTE | 2025-06-29 23:00 | NUR ---
PATIENT USES CALL LIGHT AND REQUESTING ICE CHIPS. ICE CHIPS PROVIDED. PATIENT RESTING W/ EYES CLOSED, RR 22. PATIENT HAS CALL LIGHT IN REACH, BED ALARM ON.
[2025-06-30] VITALS (11 sets, daily range): BP systolic 111–135; BP diastolic 65–80
--- NOTE | 2025-06-30 00:22 | NUR ---
PATIENT RESTING IN BED WITH EYES CLOSED, RR 22. PATIENT ON 2L NC, SPO2 96%. PATIENT TANMAY DRAIN INTACT, REMAINS TO BULB SUCTION. PATIENT MIDLINE INCISION DRESSING INTACT. HOLGUIN INTACT, DRAINING CLEAR YELLOW URINE. IVF INFUSING PER EMAR, SITE WNL. PATIENT SON ASLEEP AT BEDSIDE. NO NEEDS AT THIS TIME. CALL LIGHT IN REACH.
--- NOTE | 2025-06-30 01:07 | NUR ---
PATIENT RESTING IN BED W/ EYES CLOSED. RR EVEN AND UNLABORED. VITAL SIGNS STABLE. PATIENT SON REMAINS AT BEDSIDE. NO EVIDENCE OF ACUTE DISTRESS. CALL LIGHT IN REACH. BED ALARM ON.
--- NOTE | 2025-06-30 02:55 | NUR ---
PATIENT RESTING IN BED W/ EYES CLOSED. RR EVEN AND UNLABORED. NO EVIDENCE OF ACUTE DISTRESS. TANMAY DRAIN INTACT. MIDLINE ABDOMINAL INCISION INTACT. OSTOMY INTACT AND EMPTIED. HOLGUIN INTACT AND DRAINING CLEAR YELLOW URINE. IVF RUNNING PER EMAR. L. AC IV SITE INTACT. VITAL SIGNS STABLE. CALL LIGHT IN REACH. PATIENT SON REMAINS AT BEDSIDE.
--- NOTE | 2025-06-30 04:06 | NUR ---
patient resting in bed w/ eyes closed. rr even and unlabored. no evidence of acute distress. valladares intact and draining clear yellow urine. son remains at bedside. call light in reach. bed alarm on.
--- NOTE | 2025-06-30 05:02 | NUR ---
patient resting in bed. valladares intact, and draining clear yellow urine. ostomy intact and draining clear, tea colored fluid. midline abdominal incision intact. small amount of yellow drainage noted to distal site abdominal dressing. TANMAY drain intact and draining serosanguineous drainage. patient rating abdominal pain 2/10 but denies need for pain medication at this time. patient HOB elevated and provided w/ few ice chips. L. AC IV site WNL. denies further needs, call light in reach
[2025-06-30 05:25] LABS: BASOPHILS 0.5 % (0.1-1.2); EOSINOPHILS 5.2 % (0.7-5.8); LYMPHOCYTES 15.5 % (19.3-51.7); MCH 28.1 PG (25.6-32.2); MCHC 32.1 g/dL (32.2-35.5); MCV 87.4 fL (79.4-94.8); MONOCYTES 13.2 % (4.7-12.5); NEUTROPHILS 64.7 % (34.0-71.1); RBC 3.10 M/uL (3.93-5.22)
[2025-06-30 05:41] LABS: ALT (SGPT) 39.0 U/L (14-59); AST (SGOT) 49.0 U/L (15-37); GLOMERULAR FILTRATION RATE,EST 106.0 mL/min (>60); PROTEIN, TOTAL 5.4 g/dL (6.4-8.2); UREA NITROGEN 3.0 mg/dL (7-18)
--- NOTE | 2025-06-30 06:41 | NUR ---
patient resting in bed. Ostomy site intact. L. AC IV site intact. TANMAY drain intact. Midline abdominal incision intact and well approximated. small amount of yellow drainage noted to distal adominal dressing. valladares intact and draining clear yellow urine. patient repositioned in bed. patient denies needs at this time. son remains at bedside. call light in reach. vital signs stable
--- NOTE | 2025-06-30 09:30 | NUR ---
INTO SEE PATIENT. SON (KOURTNEY) AT BEDSIDE. PATIENT RESTING IN BED. SON SPOKE ABOUT PATIENT LIVING SITUATION. PATIENT LIVES IN AN APARTMENT COMPLEX ([facility]) IT IS AN INDEPENDENT LOW INCOME. PATIENT DOES NOT USE ANY DME AT HOME. CHART HAS BEEN FAXED TO [facility] IN [place] STILL PENDING ACCEPTANCE. SPOKE MORE WITH FAMILY MEMBER ABOUT SNF. SON STATES HE WOULD ULTIMATELY LIKE HER TO MOVE TO [place] WITH HIM FOR MORE RESOURCES.
--- NOTE | 2025-06-30 09:47 | NUR ---
PATIENT RESTING IN BED AND APPEARS COMFORTABLE. PATIENT RATES PAIN 5/10 IN ABDOMEN. PT'S SON MILTON IN ROOM AND HELPS TRANSLATE FOR PATIENT. PATIENT WANTING TO KNOW WHEN SHE CAN EAT AND HAVE MORE TO DRINK, SHE IS HUNGRY. BOWEL SOUNDS ARE HYPOACTIVE. STOMA APPEARANCE REMAINS UNCHANGED-DARK BLACKISH IN COLOR WITH SOME WHITEISH EXUDATE APPEARANCE. HR IN THE 100s CURRENTLY. PT ON ROOM AIR AND SP02 IS 95%. PO PILLS GIVEN WITH SMALL SIPS OF WATER AND PT TOLERATED WELL. ENCOURAGED PATIENT THAT SHE WILL NEED TO GET UP AND MOVE AROUND MORE TODAY.
--- NOTE | 2025-06-30 11:13 | NUR ---
PATIENT WORKING WITH OT AND IS NOW UP TO CHAIR. NEW LINENS PROVIDED ON BED. PATIENT ASKING AGAIN WHEN SHE CAN START HAVING ANY FOOD. WILL DISCUSS WITH MD PLAN FOR ADVANCING DIET. HOLGUIN REMAINS INTACT AND DRAINING CLEAR YELLOW URINE.
[2025-06-30] MEDS ORDERED: POTASSIUM CHLORIDE 10 MEQ TABCR PO ONE (15:30)
[2025-06-30] MEDS ORDERED: HYDROCODONE/ACETA 5/325 TAB PO PRN (15:30)
--- NOTE | 2025-06-30 15:31 | NUR ---
DR. LOPEZ CALLED TO GIVE UPDATE ON PATIENT AND ORDERS REC'D TO GIVE PO POTASSIUM, ADVANCE DIET TO FULL LIQUIDS, AND NEW PAIN MEDS ORDERED. PT WILL ALSO BE TRANSFERRED TO THE MEDICAL FLOOR. DR. LOPEZ TO STILL SEE PATIENT AND ROUND ON HER. IVF TO BE TURNED DOWN TO 75 ML/HR. PATIENT TO BE UPDATED WITH ALL OF THESE UPDATES, WELL HER FAMILY.
--- NOTE | 2025-06-30 16:21 | NUR ---
UR CONCURRENT/CLINICAL REVIEW: MCG-PER MCG REVIEW MEETS GEN SURGERY GRG WITH NEED FOR EXPLOATORY LAP FOR SIGMOID MASS, VARIACE FOR GRG STAGE 2, REMAINS IN ICU IV MEDICATIONS, IV ANALGESICS, COLOSTOMY VIABILITY CONCERNS [facility] INPT 06/25/25 @ 1549 ORDER MATCHES [facility]IC[facility], AUTH IS STILL PENDING. 07/07/25
--- NOTE | 2025-06-30 17:23 | NUR ---
REPORT RECEIVED FROM DOROTEO BROWN RN AT THIS TIME.
--- NOTE | 2025-06-30 17:42 | NUR ---
PATIENT ARRIVED TO THE MEDICAL SURGICAL FLOOR WITH THIS RN AND ROBERT GARDNER.
--- NOTE | 2025-06-30 17:45 | NUR ---
PATIENT IS LYING IN BED WITH HOB ELEVATED. PATIENT WITH PAIN RATED A 3/10 IN THE MIDLINE LOWER ABDOMEN. PATIENT IS NOT REQUESTING ANYTHING FOR PAIN AT THIS TIME. IV SITE IN THE LAC IS CLEAN, DRY, AND INTACT. D5LR IS INFUSING AT 75 ML/HR. BOWEL TONES ARE ACTIVE IN ALL FOUR QUADRANTS. PATIENT IS ON A FULL LIQUID DIET. PATIENT WITH A VISITOR IN THE ROOM AND IS TRANSLATING PATIENT INTERACTION AT THIS TIME. PATIENT IS NOW SET UP IN BED WITH DINNER. PATIENT STATED NO FURTHER NEEDS AT THIS TIME. CALL LIGHT AND PERSONAL BELONGINGS ARE WITHIN REACH.
--- NOTE | 2025-06-30 19:00 | NUR ---
RECEIVED REPORT FROM EAN RN. PT RESTING IN BED, PICKING AT DINNER TRAY. DENIES NEEDS OR CONCERNS AT THIS TIME. CALL LIGHT WITHIN REACH.
[2025-06-30] MEDS ORDERED: MULTIVITAMINS THERAPEUTIC 1 EA TAB PO SCH (19:28)
--- NOTE | 2025-06-30 20:39 | NUR ---
DIESEL LOCOMOTIVE CRANE OPERATOR OBTAINED VITALS AND I&O. PT STATES NO NEEDS AT THIS TIME. CALL LIGHT WITHIN REACH.
[2025-06-30] MEDS ORDERED: FERROUS SULFATE 220 MG/5 ML ML PO SCH (21:00)
--- NOTE | 2025-06-30 21:00 | NUR ---
PT RESTING IN BED. USES CALL LIGHT APPROPRIATELY. REPORTS LOWER ABD PAIN /10, PT MEDICATED W/ PRN NORCO. LSC DIM TO BASES, ENC ABD SPLINTING W/ DB & COUGH. HRR, TACHY, TELEMETRY IN PLACE. BT HYPO, ABD OBESE. TENDER TO LOWER QUADRANTS. DENIES NAUSEA. LLQ COLOSTOMY W/ BROWN LIQ DRNG. STOMA RETRACTED BELOW SKIN LEVEL. RIGHT ABD TANMAY DRAIN W/ GUAZE DRSG, SCANT S/S DRNG. MIDLINE ABD DRSG W/ SCANT DRNG, DISTAL PORTION OF INC W/ ABD IN PLACE FOR S/S DRNG. NEW PINK FOAM GUAZE DRSG APPLIED TO DISTAL PORTION OF MIDLINE INC. HOLGUIN CATH IN PLACE, CLEAR YELLOW URINE. KAIT DENIS DID CATH CARE. LFA IV INFUSING D5LR @ 75MLS/HR. FAMILY ARRIVED TO BEDSIDE. CALL LIGHT WITHIN REACH.
--- NOTE | 2025-06-30 22:46 | NUR ---
SPOKE WITH DR LOPEZ REGARDING pt's ORDERED FEOSOL. MED ACCESS UNAVAILABLE PER HOUSE SUP, WOULD HAVE TO HAVE [facility] COME IN TO GET MED. PER MD, OKAY TO HOLD TONIGHT'S DOSE AND START IN THE AM. CAR JOCKEY MARLENA MARTINEZ ALONG WITH PRIMARY RN.
--- NOTE | 2025-06-30 23:08 | NUR ---
PT SLEEPING SOUNDLY, APPEARS COMFORTABLE. FAMILY AT BEDSIDE ASLEEP.
[2025-07-01] VITALS (10 sets, daily range): BP systolic 102–131; BP diastolic 57–77
--- NOTE | 2025-07-01 01:30 | NUR ---
SLEEPING SOUNDLY, FAMILY ASLEEP AT BEDSIDE. CALL LIGHT WITHIN REACH.
--- NOTE | 2025-07-01 01:43 | NUR ---
SANDWICH WRAPPER OBTAINED VITALS AND I&O. PT STATES NO NEEDS AT THIS TIME. CALL LIGHT WITHIN REACH
--- NOTE | 2025-07-01 02:48 | NUR ---
IV ZOSYN STARTED PER EMAR. PT ASSISTED TO REPOSITION TO SLIGHTLY LEFT SIDED PER REQUEST.
--- NOTE | 2025-07-01 04:54 | NUR ---
PT SLEEPING SOUNDLY. APPEARS COMFORTABLE. FAMILY ASLEEP AT BEDSIDE.
[2025-07-01 05:29] LABS: BASOPHILS 0.4 % (0.1-1.2); EOSINOPHILS 3.8 % (0.7-5.8); LYMPHOCYTES 16.5 % (19.3-51.7); MCH 27.5 PG (25.6-32.2); MCHC 31.5 g/dL (32.2-35.5); MCV 87.2 fL (79.4-94.8); MONOCYTES 11.7 % (4.7-12.5); NEUTROPHILS 65.9 % (34.0-71.1); RBC 3.20 M/uL (3.93-5.22)
--- NOTE | 2025-07-01 05:36 | NUR ---
BISQUE WARE DIPPER OBTAINED VITALS AND I&O. PT STATES NO NEEDS AT THIS TIME. CALL LIGHT WITHIN REACH.
[2025-07-01 05:44] LABS: GLOMERULAR FILTRATION RATE,EST 106.0 mL/min (>60); UREA NITROGEN 2.0 mg/dL (7-18)
--- NOTE | 2025-07-01 06:51 | NUR ---
PT AWAKE, REPORTS "NO PEE PEE". PT SHOWN F/C. FAMILY AT BEDSIDE REPORTS SHE HAS MENTIONED THIS SEVERAL TIMES OVER THE LAST COUPLE DAYS. LEFT COLOSTOMY W/ SOME GAS AND BROWN LIQUID. MIDLINE DRSG W/ DRIED DRNG. PT ASSISTED TO TURN TO RIGHT SIDE. MEDICATED W/ PRN NORCO FOR C/O 8/10 ABD PAIN.
--- NOTE | 2025-07-01 07:15 | NUR ---
Pt report received from ROBERT Shah. Pt is resting supine in bed, eyes closed, breathing is regular, even, and non-labored. Side rails up x4, call light in reach.
[2025-07-01] MEDS ORDERED: POTASSIUM CHLORIDE 10 MEQ TABCR PO SCH (08:00)
[2025-07-01] MEDS ORDERED: FAMOTIDINE 20 MG TAB PO SCH ×2 (09:00)
[2025-07-01] MEDS ORDERED: MAGNESIUM CHLORIDE 64 MG TABCR PO ONE (09:00)
--- NOTE | 2025-07-01 10:04 | NUR ---
INTO SEE PATIENT. SON AT BEDSIDE. STILL WAITING TO HAVE SNF ACCEPTANCE.
--- NOTE | 2025-07-01 10:04 | NUR ---
CHART SENT TO [facility].
--- NOTE | 2025-07-01 11:05 | NUR ---
In with OT and pt at her request as she states, "something is leaking". Upon entering the room, I noted pt seated at the edge of the bed, holding a towel to her abdomen. Ostomy bag and appliance is intact, bag emptied of 200ml dark brown colored liquid. Pt's question about what that liquid was were answered. SBA as pt ambulated from the bed to the chair with FWW with the assistance of OT. Tolerated well. BLE elevated and pt reclined in chair for further assessment of surgical site as there was fluid leaking onto her gown. Fluid is serosanguinous in color and saturated the allyvn and tape that had been placed there by restaurant shift leader. There was also some saturation of the surgical dressing. Dr. Nance was at the surgeon's desk. I updated him on this saturation of the dressing and he advised that we can remove the dressing and leave the site open to air. He advised that the liquid draining from the incision is "liquified fat". I returned to the pt's room, removed the dressing, cleansed the area with chlorhexadine wipes per order, placed an abd pad at the distal end of the incision, and secured it with surgical tape. Pt provided with fresh water without ice, and a warm blanket. Pt's son provided with coffee, cream, and sugar.
--- NOTE | 2025-07-01 12:19 | NUR ---
Per Dr. Conti, it is okay to re-time pt's zyprexa to QHS rather than 0900 daily.
--- NOTE | 2025-07-01 14:52 | NUR ---
In with pt for assessment. Pt c/o feeling like she's not getting enough air when she is sleeping. SPO2 on room air, while awake is at 94%. 0.5LPM O2 via NC applied to pt for comfort and I will call Tyson from RT to let him know. Pt boosted in bed by this RN and Annabella Tsai. Call light in reach. LCTA.
--- NOTE | 2025-07-01 15:16 | NUR ---
PATIENT WAKING UP WITH AIR HUNGER. JOSE ENRIQUE SCOR IS 3. PLACED CPOX AND 1 LPM.
--- NOTE | 2025-07-01 18:30 | NUR ---
Pt skin appeared ashen/srinivasan in color, and she was diaphoretic. VSS. Updated Dr. Conti who came to assess the pt and ordered labs. Pt's son advised that she has not been eating all day except for a little bit of her breakfast, because she did not want what was served. Advised pt and pt's son that she is welcome to use the call light and ask for something other than what is on the menu for the day. Both verbalized understanding. I brought pt some string cheese, jello, pudding and some orange juice at her request. She was complaining of upset stomach and wasn't sure if it was nausea. Pt medicated with 4mg zofran. Visitors in room.
[2025-07-01 18:58] LABS: BASOPHILS 0.5 % (0.1-1.2); EOSINOPHILS 3.3 % (0.7-5.8); LYMPHOCYTES 17.1 % (19.3-51.7); MCH 28.3 PG (25.6-32.2); MCHC 32.7 g/dL (32.2-35.5); MCV 86.5 fL (79.4-94.8); MONOCYTES 8.8 % (4.7-12.5); NEUTROPHILS 68.5 % (34.0-71.1); RBC 3.25 M/uL (3.93-5.22)
[2025-07-01 19:14] LABS: ALT (SGPT) 48.0 U/L (14-59); AST (SGOT) 58.0 U/L (15-37); GLOMERULAR FILTRATION RATE,EST 106.0 mL/min (>60); PROTEIN, TOTAL 6.0 g/dL (6.4-8.2); UREA NITROGEN 4.0 mg/dL (7-18)
--- NOTE | 2025-07-01 20:14 | NUR ---
REPORT RECEIVED FROM ROBERT RODRIGUEZ. PATIENT IN BED WITH HOB RAISED, FAMILY AT BEDSIDE. CALL LIGHT AND PERSONAL BELONGINGS IN REACH OF PATIENT. PATIENT DENIES CONCERNS AT THIS TIME.
[2025-07-01] MEDS ORDERED: OLANZapine 10 MG TAB PO SCH (21:00)
--- NOTE | 2025-07-01 21:30 | NUR ---
PATIENTIN BED, EYES OPEN, CHEST RISE EVEN AND UNLABORED. ASSESMENT AND VITAL SIGNS COMPLETE. PATIENT'S OSTOMY IS LEAKING. REPLACED OSTOMY APPLIANCE, PATIENT TOLERATED WELL. CLEANED MIDLINE INCISION AND NEW ABD PAD IN PLACE. CALL LIGHT AND PERSONAL BELONGINGS IN REACH OF PATIENT. PATIENT DENIES FURTHER CONCERNS.
--- NOTE | 2025-07-01 23:52 | NUR ---
PATIENT IN BED, EYES OPEN, CHEST RISE EVEN AND UNLABORED. PATIENT REPORTS HEARTBURN THAT IS IRRITATING HER THROAT, STATES THE THROAT SPRAY DID NOT HELP LAST TIME AND DENIES THROAT SPRAY . ASSISTED PATIENT TO REPOSITION IN BED FOR COMFORT. PATIENT DENIES FURTHER CONCERNS AT THIS TIME. CALL LIGHT AND PERSONAL BELONGINGS IN REACH OF PATIENT.
[2025-07-02] VITALS (12 sets, daily range): BP systolic 113–133; BP diastolic 45–76
--- NOTE | 2025-07-02 00:20 | NUR ---
PATIENT IN BED WITH HOB RAISED, EYES CLOSED, CHEST RISE EVEN AND UNLABORED. CALL LIGHT AND PERSONAL BELONGINGS IN REACH OF PATIENT. NO APPARENT NEEDS NOTED AT THIS TIME.
--- NOTE | 2025-07-02 01:54 | NUR ---
RISK MANAGEMENT SPECIALIST OBTAINED VITALS AND I&O. PT STATES NO NEEDS AT THIS TIME. CALL LIGHT WITHIN REACH AND BED ALARM ON.
--- NOTE | 2025-07-02 03:00 | NUR ---
PATIENT IN BED, EYES OPEN, CHEST RISE EVEN AND UNALBORED. PATIENT REPOSITIONED IN BED. PATIENT DENIES CONCERNS AT THIS TIME. CALL LIGHT AND PERSONAL BELONGINGS IN REACH OF PATIENT.
--- NOTE | 2025-07-02 04:25 | NUR ---
PATIENT IN BED, EYES CLOSED, CHEST RISE EVEN AND UNLABORED. CALL LIGHT AND PERSONAL BELONGINS IN REACH OF PATIENT. NO APPARENT NEEDS NOTED AT THIS TIME.
--- NOTE | 2025-07-02 05:02 | NUR ---
PATIENT'S OSTOMY IS LEAKING. OSTOMY REPLACED AND SEAL IS INTACT. SKIN BARRIER, OSTOMY WAFER, AND ONE PIECE OSTOMY USED TO BETTER FACILITATE SEAL. PATIENT TOLERATED WELL. VITAL SIGNS COMPLETED. PATIENT DENIES CONCERNS AT THIS TIME. CALL LIGHT AND PERSONAL BELONGINGS IN REACH OF PATIENT.
[2025-07-02 05:16] LABS: BASOPHILS 0.6 % (0.1-1.2); EOSINOPHILS 4.1 % (0.7-5.8); LYMPHOCYTES 16.2 % (19.3-51.7); MCH 27.8 PG (25.6-32.2); MCHC 31.8 g/dL (32.2-35.5); MCV 87.5 fL (79.4-94.8); MONOCYTES 8.7 % (4.7-12.5); NEUTROPHILS 68.6 % (34.0-71.1); RBC 3.13 M/uL (3.93-5.22)
[2025-07-02 05:37] LABS: ALT (SGPT) 47.0 U/L (14-59); AST (SGOT) 56.0 U/L (15-37); GLOMERULAR FILTRATION RATE,EST 100.0 mL/min (>60); PROTEIN, TOTAL 5.9 g/dL (6.4-8.2); UREA NITROGEN 3.0 mg/dL (7-18)
--- NOTE | 2025-07-02 07:00 | NUR ---
RECIEVED REPORT FROM ROBERT HENDERSON, AND ROBERT MCDANIELS. PT IS RESTING IN BED. RR EVEN AND UNLABORED. SON IN ROOM. CALL LIGHT AND PERSONAL BELONGINGS ARE WITHIN REACH.
--- NOTE | 2025-07-02 07:55 | NUR ---
PATIENT SON EXPRESSED CONCERNS REGARDING COMMUNICATION THROUGHOUT THE NIGHT. CHARGE NURSE NOTIFIED AND WENT TO SPEAK WITH THE PATIENT AND HER SON. PATIENT SON WITH CONCERNS OF PATIENT HAVING INCREASED ACID AND NOT GETTING ANYTHING FOR IT LAST NIGHT. NOTIFIED OF PATIENT WITH INCREASED ACID. MD STATED HE WOULD PUT AN ORDER IN AT THIS TIME. NO FURTHER ORDERS.
[2025-07-02] MEDS ORDERED: PANTOPRAZOLE SODIUM 40 MG TABEC PO SCH (09:00)
--- NOTE | 2025-07-02 09:15 | NUR ---
PATIENT IN BED AT THIS TIME. COTA CHARTED VITALS AND I&O'S. CALL LIGHT WITHIN REACH, NO FURTHR NEEDS.
--- NOTE | 2025-07-02 09:21 | NUR ---
PT SLEEPING IN CHAIR, SON IN ROOM. BEKAH DIRECTOR TRANSLATIONAL IN ROOM, ABOUT TO CHECK TANMAY DRAIN. CALL LIGHT AND PERSONAL BELONGINGS ARE WITHIN REACH. RESPIRATORY RATE IS EVEN AND UNLABORED.
--- NOTE | 2025-07-02 10:00 | NUR ---
PT WORKING WITH PHYSICAL THERAPY AT THIS TIME. SON IN ROOM.
--- NOTE | 2025-07-02 11:20 | NUR ---
PT LAYING IN BED WITH EYES OPEN UPON ENTERING ROOM. FULL ASSESSMENT COMPLETE AND DOCUMENTED IN CHART. NEW ABD PAD PLACED ON THE DISTAL PART OF MIDLINE INCISION. PT DENIES ANY TENDERNESS, AND REPORTED THAT HER PAIN WAS AT A 3. PT IS NOT REQUESTING PAIN MEDICATIONS AT THIS TIME. INCISION IS OPEN TO AIR. TANMAY IN RLQ WITH SEROSANGUINEOUS DRAINAGE NOTED. COLOSTOMY ON LEFT SIDE IS INTACT. RED/BROWN DRAINAGE NOTED. PT IS ON RA WITH CPOX AT BEDSIDE. CARDIAC WITH NORMAL S1, S2 ON AUSCULTATION. PT ON TELE #4. HOLGUIN CATHETER IN PLACE, HOLGUIN AND JOHN CARE COMPLETE AT THIS TIME. PT STATED NO FURTHER NEEDS. CALL LIGHT AND PERSONAL BELONGNGS ARE WITHIN REACH.
--- NOTE | 2025-07-02 12:45 | NUR ---
PT RESTING IN BED WITH EYES CLOSED. RR EVEN AND UNLABORED. NEW BAG OF D5LR STARTED. LUNCH TRAY, PERSONAL BELONGINGS AND CALL LIGHT WITHIN REACH.
--- NOTE | 2025-07-02 13:29 | NUR ---
PATIENT IN BED AT THIS TIME. ROLL HAND CHARTED VITALS AND I&O'S. CALL LIGHT WITHIN REACH, NO FURTHER NEEDS.
--- NOTE | 2025-07-02 13:48 | NUR ---
PT RESTING IN BED WITH EYES CLOSED. RR EVEN AND UNLABORED. SON IN ROOM, SLEEPING ON COUCH. CALL LIGHT AND PERSONAL BELONGINGS ARE WITHIN REACH.
--- NOTE | 2025-07-02 14:36 | NUR ---
PATIENT IS LYING IN BED WITH EYES OPEN AND RESPIRATIONS ARE EVEN AND UNLABORED. CPOX AT BEDSIDE. PATIENT WITH THREE VISITORS IN THE ROOM AT BEDSIDE. THIS RN EXPLAINED PLAN OF CARE TO PATIENT AND VISITORS. PATIENT EXPRESSED UNDERSTANDING. PATIENT STATED NO FURTHER NEEDS AT THIS TIME. CALL LIGHT AND PERSONAL BELONGINGS ARE WITHIN REACH.
--- NOTE | 2025-07-02 15:52 | NUR ---
PT LAYING IN BED WITH EYES CLOSED. RR EVEN AND UNLABORED, CALL LIGHT AND PERSONAL BELONGINGS ARE WITHIN REACH.
--- NOTE | 2025-07-02 15:59 | NUR ---
PATIENT HAS BEEN DIAGNOSED WITH JOSE ENRIQUE AND AT ONE POINT HAD A CPAP, BUT THREW IT AWAY. PATIENT HAS COMPLAINED OF WAKING WITH ANXIETY AND NEEDING TO BREATH DEEP TO RESOLVE. CPOX IN PLACE DUE TO HX OF JOSE ENRIQUE AND PRESCRIBED PAIN MEDICATION. NO DESATURATIONS NOTED LAST 24 HOURS.
--- NOTE | 2025-07-02 16:33 | NUR ---
PT LAYING IN BED INTERMITTENTLY OPENING AND CLOSING EYES. FRESH GAUZE PLACED AROUND TANMAY DRAIN EXIT. SEROSANGUINEOUS DRAINAGE NOTED. WOUND CARE COMPLETED PER MD ORDER BY RAMSES JONES. MIDLINE INCISION IS CLEAN, W/O SIGNS OF REDNESS OR WARMTH. BROWN/RED DRAINAGE NOTED FROM COLOSTOMY. PT PROVIDED WITH BED BATH, CLEAN GOWN, AND A LINEN CHANGE. APPLE AND GRAPE JUICE PROVIDED, PER PT REQUEST. PT REPORTED PAIN A 3/10 BUT DECLINED PAIN MEDICATIONS AT THIS TIME. IV ASSESSED AND FLUSHED WITH 10 ML NORMAL SALINE. WARM BLANKETS PROVIDED. CALL LIGHT AND PERSONAL BELONGINGS ARE WITHIN REACH.
--- NOTE | 2025-07-02 18:22 | NUR ---
PATIENT IS LYING IN BED WITH HOB ELEVATED. PATIENT WITH EYES CLOSED AND RESPIRATIONS ARE EVEN AND UNLABORED. PATIENT RESPONDS TO VOID. ORAL TEMPERATURE IS 99.4 F POST TYLENOL ADMINISTRATION. KAIT GODFREY IS IN THE ROOM AND GETTING INTAKE AND OUTPUT VALUES. ACOUSTICAL TILE DRILL PRESS OPERATOR REPORTS PATIENT WANTS TO SAVE HER DINNER TRAY FOR A LITTLE BIT. PATIENT AND ACOUSTICAL TILE DRILL PRESS OPERATOR REPORTED NO FURTHER NEEDS AT THIS TIME. CALL LIGHT AND PERSONAL BELONGINGS ARE WITHIN REACH.
--- NOTE | 2025-07-02 18:33 | NUR ---
PATIENT IN BED AT THIS TIME. PLASTIC FABRICATOR CHARTED I&O'S. ROBERT PEARCE CHARTED VITALS. CALL LIGHT WITHIN REACH, NO FURTHER NEEDS.
--- NOTE | 2025-07-02 19:04 | NUR ---
Pt report received from ROBERT Aguilera and ROBERT Conde. Pt is resting supine in bed with HOB elevated, she appears scrunched down in the bed but she states she feels comfortable. Pt denies any needs at this time, states she is finished with her dinner tray. White board updated. Call light in reach.
[2025-07-03] VITALS (10 sets, daily range): BP systolic 113–132; BP diastolic 64–78
--- NOTE | 2025-07-03 02:19 | NUR ---
In with pt for med administration and focused assessment, I&Os. Pt sleeping, breathing is regular, even, and non-labored. She is slouched in the bed, but when I woke her and asked if she was comfortable, she states she is. When I asked her if she would like to be boosted in bed, she said, no. IV is patent, zosyn started. Ostomy emptied of 150ml mostly liquid stool with some seedy elements, foul odor. ABD pad on lower end of incision is approximately 60% saturated, removed and area cleansed with chlorhexadine, clean ABD applied. Noted liquid stool across the umbilical region of pt's abdomen (in a skin crease/fold). Cleaned the area with wipes, then chlorhexadine; however, I feel the ostomy/stoma needs to be addressed with as much as it continues to leak? Ramon drain emptied of 20ml serosanguinous fluid. Jenkins emptied of 1200ml clear yellow urine. Adjusted pt's pillow and HOB at her request. She denies further needs at this time. ui designer updated on status of ostomy appliance and that it was leaking, again.
--- NOTE | 2025-07-03 04:21 | NUR ---
IN WITH PT FOR ROUNDING, AND REASSESSMENT OF OSTOMY. NO LEAKING NOTED AT THIS TIME.
[2025-07-03 05:27] LABS: BASOPHILS 0.4 % (0.1-1.2); EOSINOPHILS 3.8 % (0.7-5.8); LYMPHOCYTES 17.7 % (19.3-51.7); MCH 28.0 PG (25.6-32.2); MCHC 32.0 g/dL (32.2-35.5); MCV 87.4 fL (79.4-94.8); MONOCYTES 8.4 % (4.7-12.5); NEUTROPHILS 68.4 % (34.0-71.1); RBC 3.18 M/uL (3.93-5.22)
[2025-07-03 05:44] LABS: ALT (SGPT) 44.0 U/L (14-59); AST (SGOT) 45.0 U/L (15-37); GLOMERULAR FILTRATION RATE,EST 103.0 mL/min (>60); PROTEIN, TOTAL 6.2 g/dL (6.4-8.2); UREA NITROGEN 3.0 mg/dL (7-18)
--- NOTE | 2025-07-03 06:24 | NUR ---
In with pt in response to call light. When I entered the room, the pt was resting in bed, eyes closed, breathing regular, even, and non-labored, snoring quietly. Pt's son on the couch, asleep as well, snoring quietly. Noted a foul smelling odor of stool. Ostomy appliance intact, no leaking noted. Emptied bag of 20ml foul smelling liquid/soft, seedy stool.
--- NOTE | 2025-07-03 06:31 | NUR ---
PATIENT WAS ASLEEP WHEN ROBERT RODRIGUEZ AND I ENTERED ROOM. HER SON WAS ASLEEP ON THE COUCH. I GOT VITAL SIGNS AND EMPTIED CATHETER BAG WHILE ROBERT RODRIGUEZ CHARTED. PATIENT HAD NO FURTHER NEEDS AND CALL LIGHT WITHIN REACH.
--- NOTE | 2025-07-03 07:02 | NUR ---
ANSWERED PATIENT CALL LIGHT. ROBERT RODRIGUEZ AND I MOVED PATIENT TO RECLINER. I REPLACED BED LINENS WHILE JENNIFER CLEANED OSTOMY. PATIENT GOT A WARM BLANKET AND POPCICLE. NO FURTHER NEEDS AT THIS TIME AND CALL LIGHT WITHIN REACH.
--- NOTE | 2025-07-03 07:04 | NUR ---
PATIENT IS SITTING IN THE CHAIR WITH BILATERAL LOWER EXTREMITIES ELEVATED. PATIENT WITH EYES OPEN AND RESPIRATIONS ARE EVEN AND UNLABORED. PATIENT IS SPEAKING TO HER SON WHO IS LYING ON THE COUCH. CALL LIGHT AND PERSONAL BELONGIGNS ARE WITHIN REACH. CPOX REMAINS AT BEDSIDE.
--- NOTE | 2025-07-03 07:30 | NUR ---
0800 AND 0900 MEDICATIONS ADMINISTERED PER THE EMAR. FULL ASSESSMENT COMPLETE AND DOCUMENTED IN THE CHART. LEFT COLOSTOMY WITH RED/BROWN DRAINAGE NOTED. NO LEAKING NOTED. MIDLINE ABDOMINAL INCISION IS OPEN TO AIR. SMALL AMOUNT OF SEROSANGUINEOUS DRAINAGE NOTED ON THE ABD PAD AT THE DISTAL PORTION OF THE INCISION. TANMAY DRAIN IN RUQ WITH SEROSANGUINEOUS DRAINAGE NOTED. HOLGUIN CATHETER IN PLACE. PATIENT IS ON ROOM AIR WITH CPOX AT BEDSIDE. LUNG SOUNDS ARE CLEAR IN THE UPPER LOBES AND DIMINISHED IN THE BASES BILATERALLY. CARDIAC WITH NORMAL S1 AND S2 ON AUSCULTATION. PATIENT IS ON TELEMETRY NUMBER 4 AND IS IN SINUS TACHYCARDIA. PATIENT RATED 3/10 PAIN IN THE ABDOMEN. PRN TYLENOL ADMINISTERED PER THE EMAR. PATIENT STATED NO FURTHER NEEDS AT THIS TIME. PATIENT IS SITTING IN THE CHAIR WITH BILATERAL LOWER EXTREMITIES ELEVATED. PATIENT SON IS IN THE ROOM AND TRANSLATED FOR THE PATIENT. CALL LIGHT AND PERSONAL BELONGINGS ARE WITHIN REACH.
--- NOTE | 2025-07-03 08:21 | NUR ---
PATIENT IS SITTING IN THE CHAIR WITH BILATERAL LOWER EXTREMITIES ELEVATED. PATIENT SON IS SITTING ON THE COUCH. PATIENT IS TALKING TO HER SON. CPOX REMAINS AT BEDSIDE. CALL LIGHT AND PERSONAL BELONGINGS ARE WITHIN REACH.
--- NOTE | 2025-07-03 09:14 | NUR ---
HOURLY ROUNDING. PATIENT APPEARS TO BE TIRED, SON AT BEDSIDE. BOARD UPDATED AND CALL LIGHT PLACED WITHIN REACH
--- NOTE | 2025-07-03 11:03 | NUR ---
PATIENT IS LYING IN BED WITH EYES CLOSED AND RESPIRATIONS ARE EVEN AND UNLABORED. PATIENT IS ON ROOM AIR WITH THE CPOX AT BEDSIDE. CALL LIGHT AND PERSONAL BELONGINGS ARE WITHIN REACH.
--- NOTE | 2025-07-03 12:06 | NUR ---
PATIENT REPOSITIONED WITH KAIT BURT AND ROBERT AMBRIZ. PATIENT IS SITTING IN BED WITH HOB ELEVATED. PATIENT IS SET UP WITH LUNCH TRAY IN FRONT OF HER. PATIENT SON REMAINS AT THE BEDSIDE. PATIENT IS ON ROOM AIR AND THE CPOX IS AT BEDSIDE. PATIENT STATED NO FURTHER NEEDS AT THIS TIME. CALL LIGHT AND PERSONAL BELONGINGS ARE WITHIN REACH.
[2025-07-03] MEDS ORDERED: APIXABAN 5 MG TAB PO SCH (12:49)
--- NOTE | 2025-07-03 12:59 | NUR ---
HOURLY ROUNDING. PATIENT ATE MORE THIS GO AROUND FOR A MEAL. PATIENT SON IS AT BEDSIDE, NO REQUEST FROM PATIENT OR SON AT THIS TIME. CALL LIGHT HAS BEEN PLACED WITHIN REACH
[2025-07-03] MEDS ORDERED: ELIQUIS5 MG PO (13:52)
--- NOTE | 2025-07-03 13:55 | NUR ---
PATIENT IS LYING IN BED WITH EYES CLOSED AND RESPIRATIONS ARE EVEN AND UNLABORED. PATIENT SON IS LYING ON THE COUCH. PATIENT IS ON ROOM AIR WITH THE CPOX AT BEDSIDE. PATIENT REMAINS ON TELEMETRY NUMBER 4 IN SINUS TACHYCARDIA. HR IS 101. CALL LIGHT AND PERSONAL BELONGINGS ARE WITHIN REACH.
--- NOTE | 2025-07-03 14:12 | NUR ---
PATIENT IS LYING IN BED WITH EYES CLOSED AND RESPIRATIONS ARE EVEN AND UNLABORED. PATIENT REMAINS ON ROOM AIR WITH THE CPOX AT BEDSIDE. PATIENT SON IS LYING ON THE COUCH. CALL LIGHT AND PERSONAL BELONGINGS ARE WITHIN REACH.
[2025-07-03] MEDS ORDERED: FERROUS SU220 MG/52 PO (14:34)
[2025-07-03] MEDS ORDERED: HYDROCODON-ACE1 EA10 PO (14:35)
[2025-07-03] MEDS ORDERED: FAMOTIDINE20 MG PO (14:36)
[2025-07-03] MEDS ORDERED: PANTOPRAZOLE SO40 MG PO (14:37)
--- NOTE | 2025-07-03 15:40 | NUR ---
PATIENT IS LYING IN BED WITH EYES OPEN AND RESPIRATIONS ARE EVEN AND UNLABORED. PATENT SON IS LYING ON THE COUCH WITH EYES CLOSED AND SNORING. PATIENT IS ON ROOM AIR WITH THE CPOX AT BEDSIDE. PATIENT WITH NO COMPLAINTS OF PAIN. IV SITE IS CLEAN, DRY, AND INTACT. D5LR CONTINUES TO INFUSE AT 75 ML/HR. WOUND CARE/DRESSING CHANGE COMPLETE ON THE DISTAL PORTION OF THE MIDLINE INCISION. COLOSTOMY WITH RED/BROWN DRAINAGE NOTED IN THE BAG. COLOSTOMY DRESSING WITH NO LEAKING NOTED. MEDICATIONS ADMINISTERED PER THE EMAR. PATIENT STATED NO FURTHER NEEDS AT THIS TIME. CALL LIGHT AND PERSONAL BELONGINGS ARE WITHIN REACH.
--- NOTE | 2025-07-03 16:03 | NUR ---
PATIENT IS LYING IN BED WITH HOB ELEVATED. PATIENT WITH EYES CLOSED AND RESPIRATIONS ARE EVEN AND UNLABORED. PATIENT REMAINS ON RA WITH THE CPOX AT BEDSIDE. PATIENT IS ON TELEMETRY NUMBER 4. PATIENT SON IS SLEEPING ON THE COUCH. CALL LIGHT AND PERSONAL BELONGINGS ARE WITHIN REACH.
--- NOTE | 2025-07-03 17:06 | NUR ---
PATIENT RESPOSITIONED IN BED WITH ROBERT AMBRIZ, ROBERT OGLESBY, AND KAIT BURT. PATIENT TOLERATED WELL. PATIENT IS SAT UP IN BED NOW WITH HER DINNER TRAY SET UP IN FRONT OF HER. PATIENT IS ON ROOM AIR WITH THE CPOX AT BEDSIDE. PATIENT SON REMAINS LYING ON THE COUCH SLEEPING. PATIENT STATED NO FURTHER NEEDS AT THIS TIME. CALL LIGHT AND PERSONAL BELONGINGS ARE WITHIN REACH.
--- NOTE | 2025-07-03 18:05 | NUR ---
PATIENT IS LYING IN BED WITH HOB ELEVATED. PATIENT WITH EYES CLOSED AND RESPIRATIONS ARE EVEN AND UNLABORED. PATIENT IS LYING ON THE COUCH AND ON THEIR PHONE. PATIENT IS ON ROOM AIR WITH THE CPOX AT BEDSIDE. CALL LIGHT AND PERSONAL BELONGINGS ARE WITHIN REACH. KAIT BURT JUST ENTERED THE ROOM.
--- NOTE | 2025-07-03 19:43 | NUR ---
RECEIVED REPORT ON PT. PT RESTING WITH EYES CLOSED. SON AT BEDSIDE. PT HAS NO NEEDS AT THIS TIME.
--- NOTE | 2025-07-03 21:35 | NUR ---
ASSESSMENT COMPLETE. PT LAYING IN BED, SON AT BEDSIDE. CALL LIGHT WITH IN REACH. NO NEEDS AT THIS TIME.
--- NOTE | 2025-07-03 23:32 | NUR ---
PT RESTING IN BED WITH EYES CLOSED. CALL LIGHT WITH IN REACH.
[2025-07-04] VITALS (10 sets, daily range): BP systolic 110–131; BP diastolic 55–82
--- NOTE | 2025-07-04 00:20 | NUR ---
ANSWERED CALL LIGHT. PT REPOSITIONED AND GIVEN WATER. PT C/O SORE THROAT. PT DECLINES CHLORASEPTIC SPRAY. PT RESTING IN BED. CALL LIGHT WITH IN REACH.
--- NOTE | 2025-07-04 02:40 | NUR ---
PT RESTING IN BED EYES CLOSED. CALL LIGHT WITH IN REACH.
--- NOTE | 2025-07-04 03:46 | NUR ---
ANSWERED CALL LIGHT. PT VOMITING, VOMIT IS DARK GREEN IN COLOR WITH SOME UNDIGESTED FOOD IN IT. ADMINISTERED PRN ZOFRAN. PT UP TO CHAIR USING HER FWW AND SBA. PT'S BEDDING AND GOWN CHANGED. NEW TELEMETRY AND CPOX PLACED. REDRESSED IV SITE. PT BACK TO BED. CALL LIGHT WITH IN REACH. PT AND HER SON HAVE NO NEEDS AT THIS TIME.
--- NOTE | 2025-07-04 04:58 | NUR ---
PT CPOX SOUNDING, PUT PT ON OXYGEN 2LNC. PT RESTING EYES CLOSED. CALL LIGHT WITH IN REACH.
[2025-07-04 05:29] LABS: BASOPHILS 0.5 % (0.1-1.2); EOSINOPHILS 1.4 % (0.7-5.8); LYMPHOCYTES 14.0 % (19.3-51.7); MCH 28.3 PG (25.6-32.2); MCHC 32.5 g/dL (32.2-35.5); MCV 87.0 fL (79.4-94.8); MONOCYTES 8.7 % (4.7-12.5); NEUTROPHILS 74.2 % (34.0-71.1); RBC 3.39 M/uL (3.93-5.22)
[2025-07-04 05:58] LABS: ALT (SGPT) 35.0 U/L (14-59); AST (SGOT) 42.0 U/L (15-37); GLOMERULAR FILTRATION RATE,EST 99.0 mL/min (>60); PROTEIN, TOTAL 6.7 g/dL (6.4-8.2); UREA NITROGEN 3.0 mg/dL (7-18)
--- NOTE | 2025-07-04 06:09 | NUR ---
ASSESSMENT COMPLETE. PT RESTING IN BED WITH O2 ON 2L/NC. SON AT BEDSIDE. NO NEEDS AT THIS TIME. CALL LIGHT WITH IN REACH.
--- NOTE | 2025-07-04 07:00 | NUR ---
Pt report received from RNs Kathrin and Carly. Pt is resting supine in bed, NC is below her nose (not properly wearing), but her SPO2 is at 94%. Her eyes are closed, breathing is regular, even, and non-labored. Side rails are up x3, call light in reach. White board updated.
--- NOTE | 2025-07-04 09:05 | NUR ---
[facility] DECL[facility]ED.
--- NOTE | 2025-07-04 09:15 | NUR ---
In with pt for med administration. Pt is up in chair and has eaten about 20% of her breakfast. Pt's son is in the room, expresses concern about her care after discharge and is worried about her having to return to the hospital in this area because he lives in [place]. He would like her to be transferred to a rehab facility in the [place] area so he can be closer to her to help her in rehab. He is also concerned about there being less resources available to her in this area. He states there is some family around this area but that they all have time recorder jobs and wouldn't be able to help her often. He is also concerned that her WBC count continues to slowly elevate and is worried about the ostomy leaking at times. He is wondering if she is allowed to shower. He expressed concern about her feeling of "fullness" and feeling "stomach upset" a lot over the last four days despite adding additional meds for this. He states he would like to speak the surgeon as soon as he is available. Survey Questionnaire Designer Mariya in with pt at this time. She was notified of the patient's and son's concern.
--- NOTE | 2025-07-04 09:28 | NUR ---
[facility], [facility].
--- NOTE | 2025-07-04 09:29 | NUR ---
CHART FAXED TO [facility]
[2025-07-04] MEDS ORDERED: FERROUS SULFATE 325 MG TAB PO SCH (10:24)
--- NOTE | 2025-07-04 10:24 | NUR ---
PC to Dr. Gilliam to request liquid Feosol be changed to tablet form for pt's comfort (she states the liquid is foul tasting and it is hurting her stomach). V.O. received to change to the oral tablet equivalent (he stated 220mg is fine, pharmacy reviewed and entered 325mg tabs). Dr. Gilliam also advised that she can shower today and that he plans to see her then discharge her.
--- NOTE | 2025-07-04 12:00 | NUR ---
HELPED PATIENT TAKE A SHOWER ALSO WASHED HER HAIR. NEW GOWN AND SOCKS. PATIENT LAID DOWN AFTER SHOWER.
--- NOTE | 2025-07-04 13:30 | NUR ---
In with pt for ostomy appliance change post shower. Pt is resting in bed, supine, with HOB elevated, but she is A&O. Pt position flat in bed, sports medicine trainer Yvette in to assist. Ostomy appliance is leaking stool; however, I had placed an allyvn at the edge of the appliance early Friday morning (07/03/25) on branding machine operator, to help prevent the stool from leaking into the patient's incision (it had done so previously), and this was keeping the leaking stool contained in the allyvn, which was now saturated and leaking itself. I removed the ostomy appliance in it's entirety, removed excess stool with warm wash cloths, used adhesive remover around the ostomy site, used sensitve skin wash, allowed the area to dry, applied skin barrier spray, allowed to dry, then applied mastisol and allowed it to dry. ROBERT Green cut the new wafer to fit the mostly oval shaped site and placed it onto the skin, obtaining a good seal. Ostomy paste was used under the edges of the wafer to assist with prevention of more leaking as much as possible. Ostomy bag applied. Pt tolerated procedure well. When Dr. Gilliam was in to see the pt earlier, he gave a verbal order to remove the Ramon Drain. This was done at this time. Pt tolerated procedure well. Gauze placed over drain site and secured with tape. 1P SBA as pt then transferred to chair using FWW. BLE elevated. Blankets provided. Pt's son in room states he will encourage her to eat and then later we will assist pt to ambulate. VSS. Call light in reach.
--- NOTE | 2025-07-04 14:20 | NUR ---
PC to Dr. Gilliam to request he come visualize the ostomy site in this pt. He planned on discharging her today; however, placement has not been secured for her. Dr. Gilliam advised that if the pt is still here tomorrow, he will come round on her and take a look at the ostomy. Charge Nurse notified, Dr. Conti notified.
--- NOTE | 2025-07-04 15:06 | NUR ---
PATIENT DIDN'T EAT ANY OF THE LUNCH. SON BROUGHT HER A PEAR AND SOME HEALTH ORAGANIC DRINK. THEY ARE GOING TO ORDER HER DINNER.
[2025-07-04] MEDS ORDERED: BENZONATATE 100 MG CAP PO PRN (17:00)
[2025-07-04] MEDS ORDERED: ARIPIPRAZOLE 300 MG IM ONE (17:15)
--- NOTE | 2025-07-04 18:05 | NUR ---
PC to Dr. Gilliam (primary surgeon on this pt's case), to update him on her status. Advised him that she has blood in her urine (visible, with clots), and it is visible in the valladares tubing and bag. He acknowledged this and did not give any orders. home health aide caregiver notified. Dr. Conti notified as well, as a courtesy (consulting physician).
--- NOTE | 2025-07-04 18:43 | NUR ---
Pt's son questioned the color of the urine in the pt's valladares tubing. Advised him that Dr. Gilliam said this is not concerning at this time.
--- NOTE | 2025-07-04 19:38 | NUR ---
RECEIVED REPORT ON PT. PT SITTING IN CHAIR. SON IN ROOM. PT REQUESTING TO MOVE BACK TO BED, PT MOVED BACK TO BED 1SBA WITH FWW. PT HAS NO FURTHER NEEDS AT THIS TIME. CALL LIGHT WITH IN REACH.
--- NOTE | 2025-07-04 21:49 | NUR ---
ASSESSMENT COMPLETE. PT RESTING IN BED LISTENING TO HER PHONE. CALL LIGHT WITH IN REACH. PT HAS NO FURTHER NEEDS AT THIS TIME.
--- NOTE | 2025-07-04 23:39 | NUR ---
PT RESTING EYES CLOSED. CALL LIGHT WITH IN REACH.
[2025-07-05] VITALS (9 sets, daily range): BP systolic 108–119; BP diastolic 41–61
--- NOTE | 2025-07-05 00:58 | NUR ---
PT RESTING EYES CLOSED. PULSE OX 95%, PULSE 106. CALL LIGHT WITH IN REACH.
--- NOTE | 2025-07-05 01:46 | NUR ---
PT RESTING IN BED WITH EYES CLOSED. VITALS AND I&O DONE. PT DENIES ANY NEEDS AT THIS TIME.
--- NOTE | 2025-07-05 04:29 | NUR ---
PT REQUESTS MEDICATION FOR COUGH. ADMINISTERED TESSALON PERLES. PT DENIES FURTHER NEEDS. CALL LIGHT WITH IN REACH.
[2025-07-05 05:29] LABS: BASOPHILS 0.5 % (0.1-1.2); EOSINOPHILS 2.9 % (0.7-5.8); LYMPHOCYTES 16.6 % (19.3-51.7); MCH 28.2 PG (25.6-32.2); MCHC 32.2 g/dL (32.2-35.5); MCV 87.7 fL (79.4-94.8); MONOCYTES 8.1 % (4.7-12.5); NEUTROPHILS 71.0 % (34.0-71.1); RBC 3.08 M/uL (3.93-5.22)
[2025-07-05 05:52] LABS: ALT (SGPT) 38.0 U/L (14-59); AST (SGOT) 48.0 U/L (15-37); GLOMERULAR FILTRATION RATE,EST 103.0 mL/min (>60); PROTEIN, TOTAL 6.5 g/dL (6.4-8.2); UREA NITROGEN 8.0 mg/dL (7-18)
--- NOTE | 2025-07-05 05:59 | NUR ---
ASSESSMENT COMPLETE. OSTOMY BAG EMPTIED. NEW ABDOMINAL PAD APPLIED TO BOTTOM OF MIDLINE INCISION. SMALL AMOUNT OF PURULENT REDDISH BROWN DRAINAGE ON REMOVED DRESSING. PT RESTING IN BED EYES CLOSED. NO NEEDS AT THIS TIME. CALL LIGHT WITH IN REACH.
--- NOTE | 2025-07-05 07:20 | NUR ---
VERBAL REPORT RECEIVED FROM ROBERT VASQUEZ AND ROBERT MALAVE. PT RESTS IN BED WITH EYES CLOSED, RESP EVEN AND UNLABORED.
--- NOTE | 2025-07-05 08:39 | NUR ---
PT SITS UP IN RECLINER, FINISHES BREAKFAST, TOLERATES THIS WELL, DENIES PAIN OR NAUSEA AT THIS TIME. CPOX IN PLACE, HR 110-115. HOLGUIN DRAINS YELLOW URINE. MID-LINE INCISION WELL APPROXIMATED, NO REDNESS OR SWELLING NOTED IN THE PERIWOUND, NO NEW DRAINAGED NOTED. COLOSTOMY APPLIANCE IN PLACE, INTACT, DROWN FORMED EFFLUENT NOTED IN BAG. ABDOMINAL BINDER IN PLACED. CALL LIGHT IN REACH. NO REQUESTS AT THIS TIME.
--- NOTE | 2025-07-05 09:07 | NUR ---
Spoke with pt and son. Son would like to dc whenever possible. Updated we are waiting on auth from mom's insurance. I will call [place] shortly to check on auth. He denies other needs. He plans on driving pt when she is ready. Per report am report with Dr. Conti, he has contacted Dr. Gilliam to see this pt today. Called and spoke with Brea from [facility]. They do not have auth from [facility] at this time. I will check back with her later.
--- NOTE | 2025-07-05 11:07 | NUR ---
THIS MORING WHEN I CAME IN PATIENT WAS STILL IN BED. GOT HER WARM WASH CLOTH SHE ALSO BRUSHED HER TEETH. THAN BEFORE SHE GOT UP TO SIT IN HER CHAIR FOR BREAKFAST. PUT THE ADOMINAL BINDER ON. AFTER SHE WORKED WITH OCCUPATIONAL THERAPY AND WENT FOR A WALK. SHE WAS READY TO GO BACK TO BED. ALSO WHILE SHE WAS SITTING UP IN HER CHAIR I BRUSHED HER HAIR.
--- NOTE | 2025-07-05 11:23 | NUR ---
PT REPORTS PAIN WITH COUGHING. EDUCATION ON BRACING THE ABDOMEN WITH A PILLOW PROVIDED, PT VERBALIZES UNDERSTANDING. PT REPORTS, "I FEEL BETTER THAN YESTERDAY.
--- NOTE | 2025-07-05 11:32 | NUR ---
DR. VENEGAS NOTIFIED OF MEWS SCORE 3. DR. VENEGAS INSTRUCTS TO NOTIFIED DR. JACOBS.
--- NOTE | 2025-07-05 11:34 | NUR ---
PT NOT AVAILABLE FOR VISIT. PROVIDED PRAYER.
--- NOTE | 2025-07-05 11:35 | NUR ---
DR. JACOBS NOTIFIED OF PT MEWS SCORE 3.
[2025-07-05] MEDS ORDERED: LACTATED RINGER'S 1,000 ML IV SCH (13:15)
--- NOTE | 2025-07-05 13:36 | NUR ---
IS ENCOURAGED, PT RETURN DEMONSTRATES IS USE. EDUCATION PROVIDED.
--- NOTE | 2025-07-05 15:40 | NUR ---
Called and spoke with Brea, she will check if [facility] has authorized for placement. Received a quick call back from Brea and they have auth. I reviewed the note from Dr. Gilliam and it is unclear if pt is ok to dc tomorrow. I called and spoke with him. He confirmed pt is ready for dc. I also discussed order for her to return for CT Pelvis Cystogram on 07/11/[address] Rooney. Pt will be 2 hrs away in [place]. Verbal order for pt to hace Cystogram in [facility] and to fu with a there or near them. Verbal order written. I called Brea and faxed the chart with new order, orders for valladares, and ostomy, Rx, PASRR, emar,dc summary. Brea would like pt there as early as possible. Pt will dc at 8 am. I returned to the room at 16:30 and updated the pt and son, pt will dc tomorrow at 8 am. Brochures for [facility] given. Son has packed an overnight bag with pts belongings. Packet given to the front loader residential driver with orders.
--- NOTE | 2025-07-05 17:08 | NUR ---
PT RESTS IN BED AWAKE AND ALERT. SON AT BEDSIDE. CALL LIGHT IN REACH. NO REQUESTS AT THIS TIME.
--- NOTE | 2025-07-05 17:22 | NUR ---
SET UP SHOWER SO PATIENT COULD TAKE ONE AROUND 1800. PATIENT IN BED RESTING. SON IS IN ROOM.
[2025-07-05] MEDS ORDERED: GUAIFENESIN 10 ML UNIT DOSE CUP PO PRN (18:30)
--- NOTE | 2025-07-05 19:18 | NUR ---
PT SHOWER COMPLETED. PT BACK TO BED. COLOSTOMY APPLIANCE CHANGED. OLD APPLIANCE REMOVED. REDNESS NOTED IN PERISTOMAL SKIN. CLEANSED WITH NS AND PATTED DRY. SKIN BARRIER FILM APPLIED TO PERISTOMAL SKIN AND ALLOWED TO DRY. BARRIER RING MOLDED TO 3:OO SKIN FOLD AND 70 MM 2-PIECE APPLIED, CUT-TO-FIT. PT TOLERATED FAIR. PAIN MEDICATION RECEIVED, SEE EMAR. NOTED STOMA IS RECESSED, DIFFICULT TO ASSESS WITH EFFLUENT AND NECROTIC TISSUE IN OSTOMY. MUCOCUTANEOUS JUNCTION INTACT.
--- NOTE | 2025-07-05 19:20 | NUR ---
RECEIVED REPORT ON PT.
--- NOTE | 2025-07-05 19:39 | NUR ---
PATIENT TOOK A SHOWER AROUND 1800. PATIENT WASHED HER OWN HAIR AND BODY. I WAS CLOSE BY IN CASE SHE NEEDED ANY ASSISTANCE. NURSE CHANGED MIDLINE DRESSING AND DRESSING IN THE RLQ. PATIENT IS NOW EATING HER DINNER. SON IN ROOM. BED LINENS CHANGED.
--- NOTE | 2025-07-05 21:30 | NUR ---
ASSESSMENT COMPLETE. FAMILY IN ROOM. PT DENIES PAIN AT THIS TIME. PT HAS NO FURTHER NEEDS. CALL LIGHT WITH IN REACH.
--- NOTE | 2025-07-05 22:36 | NUR ---
ENCOURAGED PT TO DO DEEP BREATHING AND USE HER IS. DISCUSSED THIS WITH HER SON. USE CALL LIGHT FOR NEEDS.
--- NOTE | 2025-07-06 00:19 | NUR ---
PT RESTING EYES CLOSED. PULSE OX 92%, [id number]. PT'S SON STAYING NIGHT WITH HER. CALL LIGHT WITH IN REACH.
[2025-07-06 01:48] VITALS: BP 107/54
[2025-07-06 01:56] VITALS: BP 107/54
--- NOTE | 2025-07-06 01:57 | NUR ---
VITAL COMPLETE. PT RESTING IN BED. PT GIVEN APPLE JUICE UPON REQUEST. CALL LIGHT WITH IN REACH. PT HAS NO FURTHER NEEDS AT THIS TIME.
--- NOTE | 2025-07-06 04:19 | NUR ---
PT RESTING IN BED WITH EYES CLOSED. PULSE OX 94%, PULSE 110. CALL LIGHT WITH IN REACH.
[2025-07-06 05:19] LABS: BASOPHILS 0.4 % (0.1-1.2); EOSINOPHILS 2.7 % (0.7-5.8); LYMPHOCYTES 14.7 % (19.3-51.7); MCH 28.1 PG (25.6-32.2); MCHC 31.9 g/dL (32.2-35.5); MCV 88.1 fL (79.4-94.8); MONOCYTES 10.2 % (4.7-12.5); NEUTROPHILS 71.2 % (34.0-71.1); RBC 3.10 M/uL (3.93-5.22)
[2025-07-06 05:22] VITALS: BP 107/56
[2025-07-06 05:35] LABS: ALT (SGPT) 32.0 U/L (14-59); AST (SGOT) 34.0 U/L (15-37); GLOMERULAR FILTRATION RATE,EST 103.0 mL/min (>60); PROTEIN, TOTAL 6.2 g/dL (6.4-8.2); UREA NITROGEN 5.0 mg/dL (7-18)
[2025-07-06 05:48] VITALS: BP 107/56
--- NOTE | 2025-07-06 05:52 | NUR ---
ASSESSMENT COMPLETE. MODERATE PURULENT DRAINAGE ON ABDOMINAL DRESSING, DRESSING CHANGED. JOHN-CARE COMPLETE. WATER REFILLED. PT DENIES FURTHER NEEDS. CALL LIGHT WITH IN REACH.
--- NOTE | 2025-07-06 07:14 | NUR ---
REPORT RECEIVED FROM GRASSLAND CONSERVATIONIST RN ANANDA RN AND PETE RN
[2025-07-06 07:31] VITALS: BP 116/57
--- NOTE | 2025-07-06 07:31 | NUR ---
NO NEEDS THIS AM. DC TO [facility] WITH SON TRANSPORTING THIS AM.
--- NOTE | 2025-07-06 07:49 | NUR ---
PATIENT IS SITTING ON THE EDGE OF BED GETTING READY WITH ASSISTANCE FROM KAIT DUNLAP. FOCUSED ASSESSMENT COMPLETE. PATIENT RATED PAIN 2/10 IN THE ABDOMEN. PATIENT IS NOT REQUESTING ANYTHING FOR PAIN AT THIS TIME. IV SITE REMOVED WITH THE CATHETER TIP INTACT. PATIENT IS ON A REGULAR DIET AND BOWEL TONES ARE ACTIVE IN ALL FOUR QUADRANTS. OSTOMY WITH BROWN DRAINAGE NOTED IN THE BAG. MIDLINE INCISION WITH SHIRA AND IS OPEN TO AIR. THIS RN EDUCATED PATIENT AND FAMILY THAT I WILL GO OVER EDUCATION WHEN KAIT DUNLAP IS FINISHED. PATIENT EXPRESSED UNDERSTANDING. CALL LIGHT AND PERSONAL BELONGINGS ARE WITHIN REACH.
--- NOTE | 2025-07-06 09:06 | NUR ---
REPORT GIVEN TO MEGAN AT [facility]. ALL QUESTIONS AND CONCERNS ADDRESSED. CALL ENDED.
--- NOTE | 2025-07-06 13:38 | PATH ---
[facility] [address] [facility] [place], [place] [address] Signed THIS IS AN ADDENDUM REPORT SPECIMEN(S): A DISTAL SIGMOID COLON SPECIMEN(S): B OMENTAL TUMERIC IMPLANT SPECIMEN SOURCE: A. DISTAL SIGMOID COLON B. OMENTAL TUMERIC IMPLANT CLINICAL HISTORY: Sigmoid colon malignancy. FINAL PATHOLOGIC DIAGNOSIS: A. 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 - Overlying colonic mucosa is negative for neoplasm. - Acute and chronic diverticulitis with focal diverticular rupture and serosal abscess. Area of acute diverticulitis present at closest resection margin. - Multiple serosal deposits of tumor with acute and chronic serositis and serosal adhesions. - 5 of 9 pericolonic lymph nodes positive for metastatic carcinoma. - 7 soft tissue deposits of tumor are noted in mesenteric adipose tissue. - See comment and summary. B. Omental tumor implant: - Poorly differentiated adenocarcinoma with similar morphologic findings as described in specimen A. COMMENT: The adenocarcinoma appears to arise from a noncolonic source extending through colonic tissue into submucosal areas. In addition, areas of chronic and acute diverticulitis are noted with focal serosal abscess related to acute diverticulitis. Stains are performed (block A3) CK7: Positive CK20: Positive AE1/AE3: Positive Villin: Positive CDX2: Positive GATA3: Negative PAX8: Negative PATIENT NAME: TED SRIVASTAVA PATHOLOGY DATE OF : 62 REPORT #: [id number] PHYSICIAN: TIFFANIE PATHOLOGY PCP: SETPHANIE HERNÁNDEZ MD REPORT IS CONFIDENTIAL AND NOT TO BE RELEASED WITHOUT AUTHORIZATION [facility] [address] [place], [place] [address] Signed WT1: Negative TTF-1: Pending Summary: The architecture and staining pattern favor a poorly differentiated adenocarcinoma arising outside the sigmoid colon. Probable primary sites include upper GI and hepatobiliary sources. Correlation with clinical and imaging studies are required. A diagnostic alert is initiated by Dr Ontiveros. MARYLU MICROSCOPIC EXAMINATION: Histologic sections of all submitted blocks are examined by light microscopy. These findings, together with the gross examination, support the pathologic diagnosis. GROSS DESCRIPTION: A. The specimen, labeled and designated "Laureen, R, " and designated on the requisition "distal sigmoid colon," is received in formalin and consists of one unoriented segment of large bowel that is 14.3 cm in length and has an average internal circumference of 7.5 cm. Approximately half of the specimen is indurated. The serosal surface is a red with focal nodular areas. Also present is one area of disruption that measure 2.9 x 0.7 cm, inked blue at the time of grossing. A nodular, cystic area is present on the serosal surface adjacent to the defect measuring 6.2 x 2.5 x 1.6 cm. The surface is inked red. The radial resection margin is inked green. Upon opening the mucosal surface is pink and finely granular with the usual folding pattern. Serially sectioning reveals a an 8.5 x 5.2 x 2.4 cm white firm ill-defined submucosal mass that is 1.3 cm from the closest resection margin, 9.6 cm from the opposite resection margin, 1.0 cm from the radial resection margin, and abuts the serosal surface in the red inked nodular area. The mass surrounds multiple diverticula and involves the pericolonic adipose tissue. Involvement of the overlying mucosa is not grossly identified. The bowel wall ranges in thickness from 0.7 cm up to 2.5 cm. Upon palpation of the pericolonic adipose tissue multiple lymph nodes are grossly identified. Strike Warfare/Missile Systems Officer sections are submitted in 12 cassettes. Cassette Summary: (A1) closest resection margin, shave (A2) opposite resection margin, shave PATIENT NAME: TED SRIVASTAVA PATHOLOGY DATE OF : 62 REPORT #: [id number] PHYSICIAN: TIFFANIE PATHOLOGY PCP: STEPHANIE HERNÁNDEZ MD REPORT IS CONFIDENTIAL AND NOT TO BE RELEASED WITHOUT AUTHORIZATION [facility] [address] [place], [place] [address] Signed (A3) mass to radial resection margin, perpendicular (A4) mass to serosa (inked red) (A5-A6) mass to mucosa (A7) mass surrounding diverticula (A8) cystic component of mass (A9) nodules on serosal surface (A10) six possible lymph nodes, submitted whole (A11) six possible lymph nodes, submitted whole (A12) four possible lymph nodes, submitted whole B. The specimen, labeled and designated "Laureen R, " and designated on the requisition "omental turmeric implant," is received in formalin and consists of two portions of yellow-ruiz multilobulated omentum that measure 4.1 x 2.6 x 1.8 cm and 5.5 x 4.3 x 1.6 cm. Serially sectioning reveals two white firm ill-defined masses that measure 1.8 and 2.9 cm in greatest dimension. Strike Warfare/Missile Systems Officer sections are submitted in (B1). FB (under the direct supervision of a pathologist) The Gross Description was prepared using a voice recognition system. The report was reviewed for accuracy; however, sound-alike word errors, addition and/or deletions may occur. If there is any question about this report, please contact Client Services. ADDITIONAL NOTES: Immunohistochemical and/or in situ hybridization studies if performed in this case included appropriate positive controls that reacted as expected. This test was developed and its performance characteristics determined by [facility]. It has not been cleared or approved by the U.S. Food and Drug Administration. The FDA has determined that such clearance or approval is not necessary. This test is used for clinical purposes. It should not be regarded as investigational or for research. [facility] is certified under the Clinical Laboratory Improvement Amendments of 1988 (CLIA) as qualified to perform high complexity clinical laboratory testing. PERFORMING LABORATORY: Technical component was performed by [facility], [address] [place] [id number] (CLIA# [id number]). Professional interpretation was performed by [facility] - [facility], [address] [place] [id number] (CLIA#: [id number]). PATIENT NAME: TED SRIVASTAVA PATHOLOGY DATE OF : 62 REPORT #: [id number] PHYSICIAN: MARIANAArchetype Media PATHOLOGY PCP: STEPHANIE HERNÁNDEZ MD REPORT IS CONFIDENTIAL AND NOT TO BE RELEASED WITHOUT AUTHORIZATION [facility] [address] [place] [place] [address] Signed REASON FOR ADDENDUM: The purpose of this addendum is to report the results of the TTF-1 stain. TTF-1: Negative. The original diagnosis is unchanged. MARYLU Diagnostician: Wallace Ontiveros MD Pathologist Electronically Signed 07/06/2025 Copies: ~ PATIENT NAME: TED SRIVASTAVA PATHOLOGY DATE OF : 62 REPORT #: [id number] PHYSICIAN: TIFFANIE COPELAND PCP: STEPHANIE HERNÁNDEZ MD REPORT IS CONFIDENTIAL AND NOT TO BE RELEASED WITHOUT AUTHORIZATION
== END 2025-07-06 08:15 | disposition home or self-care (01) | DRG 330 ==
LOC: ED 11:21 → MS 15:31 → CCU 15:31 → MS 15:31
PROVIDERS: Emergency Medicine; Family Medicine; Internal Medicine; ADMIT Surgery; ATTEND Surgery
PROC: 0D1M0Z4 Bypass Descending Colon to Cutaneous, Open Approach (ICD-10-PCS; 2025-06-25)
PROC: 0TQB0ZZ Repair Bladder, Open Approach (ICD-10-PCS; 2025-06-25)
PROC: 0DBU0ZX Excision of Omentum, Open Approach, Diagnostic (ICD-10-PCS; 2025-06-25)
PROC: 0T9B70Z Drainage of Bladder with Drainage Device, Via Natural or Artificial Opening (ICD-10-PCS; 2025-06-25)
PROC: 0D9670Z Drainage of Stomach with Drainage Device, Via Natural or Artificial Opening (ICD-10-PCS; 2025-06-25)
PROC: 3E03329 Introduction of Other Anti-infective into Peripheral Vein, Percutaneous Approach (ICD-10-PCS; 2025-06-25)
PROC: 0DBN0ZZ Excision of Sigmoid Colon, Open Approach (ICD-10-PCS; principal; 2025-06-25 15:00)
PROC: 0DJD8ZZ Inspection of Lower Intestinal Tract, Via Natural or Artificial Opening Endoscopic (ICD-10-PCS; 2025-06-29)
DX: C18.7 Malignant neoplasm of sigmoid colon (principal); C78.6 Secondary malignant neoplasm of retroperitoneum and peritoneum; K56.699 Other intestinal obstruction unspecified as to partial versus complete obstruction; K94.09 Other complications of colostomy; I96 Gangrene, not elsewhere classified; N99.72 Accidental puncture and laceration of a genitourinary system organ or structure during other procedure; F32.A Depression, unspecified; E66.01 Morbid (severe) obesity due to excess calories; E78.00 Pure hypercholesterolemia, unspecified; E87.6 Hypokalemia; Y83.3 Surgical operation with formation of external stoma as the cause of abnormal reaction of the patient, or of later complication, without mention of misadventure at the time of the procedure; E83.42 Hypomagnesemia; Y83.8 Other surgical procedures as the cause of abnormal reaction of the patient, or of later complication, without mention of misadventure at the time of the procedure; D64.9 Anemia, unspecified; R05.9 Cough, unspecified; R31.9 Hematuria, unspecified; Z68.35 Body mass index [BMI] 35.0-35.9, adult
CPT/HCPCS: 00840; 36415; 71045; 74177; 76705; 76942; 80048; 80053; 81001; 81003; 82378; 82570; 83690; 83735; 85025; 86304; 87088; 88305; 88309; 88341; 88342; 93005; 93010; 94762; 94799; 97110; 97116; 97162; 97167; 97530; 97535; A9270; J0330; J0696; J1100; J1171; J1450; J1885; J2003; J2060; J2270; J2405; J2543; J2704; J2795; J3010; J3475; J3480; J3490; J7030; J7040; J7060; J7120; J7121; Q9967